=== PATIENT | female | born 1945 | race Caucasian/White ===

== ENCOUNTER → 2021-09-08 09:47 | Outpatient (CLI) | payer MEDICARE, SELFPAY ==
[2021-09-08 10:05] LABS: Basophils # 0.1 K/mm3 (0-0.2); Basophils % 0.4 % (0.1-2.0); Eosinophils # 0.2 K/mm3 (0.0-0.4); Eosinophils % 1.4 % (0.1-12.0); Hematocrit 37.6 % (37.0-47.0); Hemoglobin 12.7 g/dL (12.2-16.2); Lymphocytes # 3.4 K/mm3 (0.7-4.5); Mean Corpuscular HGB Conc 33.9 g/dL (31.8-35.4); Mean Corpuscular Hemoglobin 30.2 pg (27.0-31.2); Mean Corpuscular Volume 89.2 fl (81-99); Mean Platelet Volume 8.7 fl (7.4-10.4); Monocytes # 0.5 K/mm3 (0.1-1.0); Monocytes % 4.6 % (1.7-9.3); Neutrophils # 7.3 K/mm3 (1.8-7.8); Neutrophils % 63.6 % (37.0-80.0); Platelet Count 286 K/mm3 (142-424); Red Blood Count 4.21 M/mm3 (4.20-5.40); Red Cell Distribution Width 13.4 % (11.5-17.5); White Blood Count 11.5 K/mm3 (4.8-10.8)
[2021-09-08 10:18] LABS: Chloride 97 mmol/L (98-107); Sodium 137 mmol/L (136-145)
[2021-09-08 10:19] LABS: Potassium 4.7 mmoL/L (3.5-5.1)
[2021-09-08 10:21] LABS: Alanine Aminotransferase 8 U/L (12-78); Albumin Level 4.6 g/dl (3.5-5.0); Albumin/Globulin Ratio 1.4 (1.1-1.8); Alkaline Phosphatase 60 U/L (38-126); Anion Gap 14.7 mEq/L (5-15); Aspartate Amino Transferase 23 U/L (14-36); Bilirubin,Total 0.3 mg/dl (0.2-1.3); Blood Urea Nitrogen 31 mg/dl (7-17); Calcium 11.3 mg/dl (8.4-10.2); Carbon Dioxide 30 mmol/L (22.0-30.0); Estimated Glomerular Filt Rate 44 ml/min (>60); GFR (African American) 53 ML/MIN (>60); Globulin 3.2 g/dL (1.3-3.2); Glucose 142 mg/dl (74-100); Total Protein,Serum 7.8 g/dl (6.3-8.2)
--- NOTE | 2021-09-08 10:30 | MR_ITS ---
PROCEDURE: MR HEAD/BRAIN WO/W CON CLINICAL INDICATION: BREAST CANCER Intermittent left-sided headache COMPARISON: No exams were available for comparison TECHNIQUE: Routine multiplanar multi echo sequences are performed without gadolinium enhancement. FINDINGS: No midline shift, mass effect, intracranial hemorrhage, or hydrocephalus is evident. The cerebellopontine angles cerebellum, brainstem and mid brain have an unremarkable appearance. There is generalized atrophy. Nonspecific scattered T2 white matter hyperintensities are noted. No enhancing lesions are apparent. There is partial empty sella. The optic chiasm, corpus callosum, and craniocervical junction have an unremarkable appearance. No pituitary mass apparent. No mastoid effusion or sinus air-fluid level. IMPRESSION: No acute intracranial findings. No evidence of metastatic disease. Dictated by: Kenrick Wang MD 09/09/2021 07:59 Kenrick Wang MD in [facility] 09/09/2021 07:59
== END ==
PROVIDERS: PCP Family Medicine; Visit Provider Internal Medicine Medical Oncology
DX: C50.912 Malignant neoplasm of unspecified site of left female breast (principal)
CPT/HCPCS: 36415; 70553; 80053; 85025; A9576

== ENCOUNTER → 2021-09-10 08:39 | Outpatient (CLI) | payer MEDICARE, SELFPAY ==
--- NOTE | 2021-09-10 08:45 | CT_ITS ---
PROCEDURE: CT CHEST W CON CLINCAL INDICATION: BREAST CANCER COMPARISON: No exams were available for comparison TECHNIQUE: IV Contrast: 75ml Isovue 370 Axial images obtained with sagittal and coronal reformats. All CT scans at the facility use one or more dose reduction, viz: automated exposure control, ma/kV adjustment per patient size (including targeted exams where dose is matched to indication, i.e. head), or iterative reconstruction technique. FINDINGS: HEART AND MEDIASTINAL STRUCTURES: No mediastinal or hilar mass or adenopathy. Mild cardiomegaly. Coronary artery calcifications. There is a right IJ MediPort catheter present. The tip is in the region the azygos vein. There is mild dilatation of the ascending aorta at 4 cm. There is mild prominence of the right and left main pulmonary artery right more so than left. No obvious pulmonary embolus. LUNGS AND PLEURAL SPACES: 4 mm noncalcified nodule right upper lobe laterally. 6 mm noncalcified nodule right upper lobe inferiorly and laterally. 4 mm subpleural nodule right upper lobe anterior laterally. Fissural nodule in the right minor fissure flat like in nature at 7 mm. Calcified granuloma right lower lobe inferiorly and medially. 5 mm noncalcified nodule right lower lobe posteriorly and medially 5 mm nodule superior segment left lower lobe. Atelectatic changes versus scarring in the lung bases. BONY STRUCTURES: There are degenerative changes in the thoracic spine UPPER ABDOMEN: Please see abdomen report performed on the same day. ADDITIONAL FINDINGS: 5 cm mass within the inferior aspect of the left breast posteriorly. Central metallic density noted within the mass consistent with a biopsy clip. Edematous changes are present in the left breast with skin thickening. Multiple enlarged left axillary lymph nodes with nodes measuring up to 4 x 2 cm IMPRESSION: 1. Left breast mass with axillary adenopathy consistent with breast cancer with involvement of the axillary nodes. 2. There are multiple noncalcified small pulmonary nodules. At least 1 calcified nodule is also noted. The noncalcified nodules could be metastatic in nature or secondary to inflammatory/infectious process. Follow-up suggested. If old studies are available at another institution, suggest correlation. No old exams are available at this institution. 3. The tip of the right IJ MediPort catheter resides in the region of the azygos vein just distal to the azygos arch 4. Mild fusiform dilatation of the ascending aorta at 4 cm with mild prominence also of the main pulmonary arteries the Dictated by: Kenrick Wang MD 09/11/2021 07:43 Kenrick Wang MD in [facility] 09/11/2021 07:43
--- NOTE | 2021-09-10 08:45 | CT_ITS ---
PROCEDURE: CT ABDOMEN PELVIS W CON CLINICAL INDICATION: BREAST CANCER COMPARISON: No exams were available for comparison TECHNIQUE: IV Contrast: 75ML Isovue 370 Oral Contrast 450ml Redicat Axial images obtained with sagittal and coronal reformats. All CT scans at the facility use one or more dose reduction, viz: automated exposure control, ma/kV adjustment per patient size (including targeted exams where dose is matched to indication, i.e. head), or iterative reconstruction technique. FINDINGS: No focal liver lesion apparent. There has been a prior cholecystectomy. There is mild intra and extrahepatic biliary ductal dilatation. Common bile duct measures 8 mm. Mildly prominent cystic duct remnant noted. Multiple calcified granulomas in the spleen. Unremarkable adrenal glands. No pancreatic mass or peripancreatic fluid collection. The right kidney has an unremarkable appearance. There is an exophytic fatty mass extending off of the superior aspect of the left kidney measuring 5 by 5 cm consistent with an angio myelolipoma. No perinephric hemorrhage. No hydronephrosis. No renal or ureteral calculi. Small hiatal hernia. Unremarkable appendix. No intestinal obstruction or free air. Prior hysterectomy. No pelvic mass or abnormal fluid collection. Small umbilical hernia containing fat. Degenerative changes of the lumbar spine. There is a small sclerotic focus involving the L4 vertebral body on the left at 8 mm. A 3 mm sclerotic focus is present in the right aspect of the L4 vertebral body. There nonspecific areas of decreased attenuation in the intramedullary region of both femoral necks. This is of questionable clinical significance possibly related to osteoporosis. Suggest whole body bone scan for further evaluation. Hypertrophic changes are present at the symphysis pubis. IMPRESSION: 1. No evidence of intra-abdominal or pelvic metastasis. 2. 5 cm left renal angio myelolipoma 3. Scattered small sclerotic foci and questionable lytic lesions of the femoral necks versus osteoporotic changes. The sclerotic foci could be due to bone islands. Metastatic disease is not excluded. Whole body bone scan suggested for further evaluation. 4. Prior cholecystectomy with biliary ectasia and prominent cystic duct remnant. Dictated by: Kenrick Wang MD 09/11/2021 07:56 Kenrick Wang MD in [facility] 09/11/2021 07:56
--- NOTE | 2021-09-10 09:44 | CA_ITS ---
APPROVED REPORT EXAM: Comprehensive 2D, Doppler, and color-flow Echocardiogram Farm Manager: Sara Diego CRT Ht: 5 ft 4 in Wt: 189lbs BSA: 1.91 BP: 155/56 mmHg Indications: recent Breast CA dx, pre chemo 2D Dimensions LVOT 1.91 cm (M/F) 1.5-2.5 LA Volume 30.50 mL LA Volume Index 15.494243 mL/m2 (M/F) 16-34 M-Mode Dimensions RVDd 3.15 cm (0.9-2.6) LA Diam 3.53 cm (1.9-4.0) LVDd 4.64 cm (3.5-5.7) Ao Diam 3.58 cm (2.0-3.7) LVDs 2.82 cm (3.5-5.7) IVSd 1.33 cm (0.6-1.1) PWd 0.53 cm (0.6-1.1) EF (Teich) 75.30% FS 44.40% EDV (Teich) 122.10 mL TAPSE 1.76 (<1.7) ESV (Teich) 30.10 mL LV Diastology E Decel Time 277.00 (160-240 msec) E/A Ratio 0.70 MED E' 5.00 (< 7 cm/sec) MED A' 8.10 cm/s E'/MED E' Ratio 13.08 (>14) LAT E' 6.50 (<10 cm/sec) LAT A' 9.40 cm/s E/LAT E' Ratio 10.06 (>14) Aortic Valve AI PHT 380.00 ms AO Peak GR. 4.70 mmHg Mitral Valve MV A Velocity 94.00 (40-130 cm/s) E/A Ratio 0.70 MV Decel. Time 277.00 (160-240 ms) Pulmonary Valve PV Peak Velocity 82.00 (50-150 cm/s) Tricuspid Valve TR P. Velocity 170.00 cm/s RAP Estimate 10.00 mmHg RVSP 21.50 mmHg Left Ventricle Left atrium is mildly enlarged, left ventricle is normal size, mild concentric left ventricular hypertrophy, visually estimated ejection fraction 55% with no regional wall motion abnormality, grade 1 diastolic dysfunction seen without tissue Doppler evidence of raise left atrial pressure. Right Ventricle Right atrium and right ventricle mildly enlarged with normal contractility. Aortic Valve Aortic valve is minimally thickened and calcified without aortic stenosis, there is trace aortic insufficiency. Mitral Valve Mitral valve is grossly normal, there is no mitral stenosis, there is mild mitral regurgitation. Tricuspid Valve Tricuspid valve grossly normal, there is trace tricuspid regurgitation, tricuspid regurgitation jet velocity is inadequate for calculation of the right ventricular systolic pressure. Pulmonic Valve Pulmonic valve is poorly visualized. Great Vessels Aortic root is mildly enlarged. Measuring 3.8 cm Inferior vena cava is mildly dilated with normal inspiratory collapse. Pericardium No significant pericardial effusion noted. Conclusion 1. Mild biatrial enlargement, normal left ventricular size, mild concentric left ventricular hypertrophy, visually estimated ejection fraction 55% with no regional wall motion abnormality, grade 1 diastolic dysfunction seen without tissue Doppler evidence of raise left atrial pressure. 2. Mildly enlarged right ventricle with normal contractility. 3. Thickened and calcified aortic valve without aortic stenosis, there is mild aortic insufficiency, aortic root is mildly enlarged measuring 3.8 cm. 4. Mild mitral and tricuspid regurgitation. 5. No significant pericardial effusion noted. 6. Inferior vena cava is mildly dilated with normal inspiratory collapse. Electronically signed by : Adonay Donovan MD 09/11/2021 16:38:02
== END ==
PROVIDERS: PCP Family Medicine; Visit Provider Internal Medicine Medical Oncology
DX: C50.912 Malignant neoplasm of unspecified site of left female breast (principal); Z03.89 Encounter for observation for other suspected diseases and conditions ruled out; Z51.81 Encounter for therapeutic drug level monitoring; R06.09 Other forms of dyspnea
CPT/HCPCS: 71260; 74177; 93306; Q9967

== ENCOUNTER → 2021-09-11 09:00 | Outpatient (CLI) | payer MEDICARE, SELFPAY ==
--- NOTE | 2021-09-11 08:58 | XR_ITS ---
PROCEDURE: XR KUB CLINICAL INDICATION: RECENT CT SCAN, BREAST CANCER, CLEARANCE FOR BONE SCAN COMPARISON: No exams were available for comparison FINDINGS: There is residual contrast within the large bowel which overlies the right ilium and the L4 region in the lower ribs on the left as well as the lower pelvic area. This may impede adequate evaluation the bone scan that the patient is scheduled for. Therefore, would recommend reschedule in the bone scan in 2-3 days. There are degenerative changes of the lumbar spine and hips. Nonspecific bowel gas pattern. IMPRESSION: Residual contrast in the colon as described above. Dictated by: Kenrick Wang MD 09/11/2021 09:11 Kenrick Wang MD in [facility] 09/11/2021 09:11
== END ==
PROVIDERS: PCP Family Medicine; Visit Provider Internal Medicine Medical Oncology
DX: C50.912 Malignant neoplasm of unspecified site of left female breast (principal)
CPT/HCPCS: 74018

== ENCOUNTER → 2021-09-15 08:39 | Outpatient (CLI) | payer MEDICARE, SELFPAY ==
--- NOTE | 2021-09-15 08:43 | NM_ITS ---
PROCEDURE: NM BONE SCAN WHOLE BODY CLINICAL INDICATION: BREAST CA COMPARISON: CT CT CHEST W CON from 09/10/[address] ABDOMEN PELVIS W CON from 09/10/2021 FINDINGS: Dose: 25.9 mCi technetium MDP IV There are scattered small foci of increased activity within the thoracic spine on the left at the T4 level bilaterally at T5, on the right at T11, and on the left at L3. These may be due to degenerative changes. There is slight increased activity at the L4 superior endplate which may also be due to degenerative changes. No abnormal long bone activity apparent. IMPRESSION: Indeterminate findings with a few scattered foci of increased activity within the thoracic and lumbar spine. These could be degenerative in nature. Cannot exclude the possibility of metastatic disease. Please correlate with clinical parameters. Dictated by: Kenrick Wang MD 09/19/2021 11:23 Kenrick Wang MD in [facility] 09/19/2021 11:23
--- NOTE | 2021-09-15 08:56 | XR_ITS ---
PROCEDURE: XR KUB CLINICAL INDICATION: CHECKING FOR CONTRAST FROM CT COMPARISON: CT CT ABDOMEN PELVIS W CON from 09/10/2021 CR XR KUB from 09/11/2021 FINDINGS: Patient scheduled for a nuclear medicine exam. This exam is performed to exclude residual oral contrast within the colon. No residual oral contrast apparent. There are mild degenerative changes of the hips and lumbar spine. IMPRESSION: Negative KUB. No residual contrast apparent Dictated by: Kenrick Wang MD 09/15/2021 14:14 Kenrick Wang MD in [facility] 09/15/2021 14:14
--- NOTE | 2021-09-15 09:26 | HMH.ITSHM ---
Current Home Medications as stated by this patient Mabel Bethea or agricultural sales representative. []ROSUVASTATIN METOPROLOL METFORMIN LISINOPRIL HCTZ AMLODIPINE
== END ==
PROVIDERS: PCP Family Medicine; Visit Provider Internal Medicine Medical Oncology
DX: C50.912 Malignant neoplasm of unspecified site of left female breast (principal); Z03.89 Encounter for observation for other suspected diseases and conditions ruled out
CPT/HCPCS: 74018; 78306; A9503

== ENCOUNTER 2021-09-24 08:36 | Outpatient (CLI) | payer MEDICARE, SELFPAY ==
[2021-09-24] VITALS (26 sets, daily range): BP systolic 117–148; BP diastolic 50–67; PULSE 55–68; RESP 16–18; TEMP 36.6; O2SAT 98–100; BMI 32.3
[2021-09-24 09:11] LABS: Basophils # 0.1 K/mm3 (0-0.2); Basophils % 0.9 % (0.1-2.0); Eosinophils # 0.2 K/mm3 (0.0-0.4); Eosinophils % 2.4 % (0.1-12.0); Hematocrit 35.9 % (37.0-47.0); Hemoglobin 12.3 g/dL (12.2-16.2); Lymphocytes # 1.7 K/mm3 (0.7-4.5); Lymphocytes % 26.9 % (10-50); Mean Corpuscular HGB Conc 34.3 g/dL (31.8-35.4); Mean Corpuscular Volume 87.6 fl (81-99); Mean Platelet Volume 8.5 fl (7.4-10.4); Monocytes # 0.3 K/mm3 (0.1-1.0); Monocytes % 5.2 % (1.7-9.3); Neutrophils # 4.2 K/mm3 (1.8-7.8); Neutrophils % 64.6 % (37.0-80.0); Platelet Count 256 K/mm3 (142-424); Red Blood Count 4.09 M/mm3 (4.20-5.40); Red Cell Distribution Width 13.5 % (11.5-17.5); White Blood Count 6.5 K/mm3 (4.8-10.8)
[2021-09-24 09:14] LABS: Chloride 102 mmol/L (98-107)
[2021-09-24 09:15] LABS: Sodium 137 mmol/L (136-145)
[2021-09-24 09:17] LABS: Alanine Aminotransferase 15 U/L (12-78); Alkaline Phosphatase 54 U/L (38-126); Aspartate Amino Transferase 21 U/L (14-36); Bilirubin,Total 0.4 mg/dl (0.2-1.3); Blood Urea Nitrogen 30 mg/dl (7-17); Carbon Dioxide 26 mmol/L (22.0-30.0); Creatinine Clearance Estimated 54 mL/min (50-200); Estimated Glomerular Filt Rate 44 ml/min (>60); GFR (African American) 53 ML/MIN (>60)
[2021-09-24 09:18] LABS: Albumin Level 4.3 g/dl (3.5-5.0); Albumin/Globulin Ratio 1.4 (1.1-1.8); Calcium 9.9 mg/dl (8.4-10.2); Glucose 177 mg/dl (74-100); Total Protein,Serum 7.3 g/dl (6.3-8.2)
== END 2021-09-24 17:00 | disposition home or self-care (01) ==
LOC: INF 08:39
PROVIDERS: PCP Family Medicine; Visit Provider Internal Medicine Medical Oncology
DX: Z51.11 Encounter for antineoplastic chemotherapy (principal); C50.912 Malignant neoplasm of unspecified site of left female breast
CPT/HCPCS: 80053; 85025; 96365; 96366; 96367; J1642; J7060; J9267; J9306; J9355; Q0166

== ENCOUNTER 2021-10-01 08:29 | Outpatient (CLI) | payer MEDICARE, SELFPAY ==
[2021-10-01] VITALS (9 sets, daily range): BP systolic 137–151; BP diastolic 50–77; PULSE 55–69; RESP 18; TEMP 36.2; O2SAT 98–99; BMI 32.2
[2021-10-01 09:11] LABS: Basophils # 0.1 K/mm3 (0-0.2); Basophils % 1.2 % (0.1-2.0); Eosinophils # 0.1 K/mm3 (0.0-0.4); Eosinophils % 1.6 % (0.1-12.0); Hematocrit 37.1 % (37.0-47.0); Hemoglobin 12.7 g/dL (12.2-16.2); Lymphocytes # 2.1 K/mm3 (0.7-4.5); Mean Corpuscular HGB Conc 34.4 g/dL (31.8-35.4); Mean Corpuscular Hemoglobin 30.3 pg (27.0-31.2); Mean Corpuscular Volume 88.3 fl (81-99); Mean Platelet Volume 8.3 fl (7.4-10.4); Monocytes # 0.3 K/mm3 (0.1-1.0); Monocytes % 4.6 % (1.7-9.3); Neutrophils # 4.1 K/mm3 (1.8-7.8); Neutrophils % 61.6 % (37.0-80.0); Platelet Count 225 K/mm3 (142-424); Red Cell Distribution Width 13.5 % (11.5-17.5); White Blood Count 6.7 K/mm3 (4.8-10.8)
[2021-10-01 09:23] LABS: Chloride 94 mmol/L (98-107); Sodium 127 mmol/L (136-145)
[2021-10-01 09:24] LABS: Potassium 4.3 mmoL/L (3.5-5.1)
[2021-10-01 09:26] LABS: Alanine Aminotransferase 18 U/L (12-78); Alkaline Phosphatase 52 U/L (38-126); Anion Gap 14.3 mEq/L (5-15); Aspartate Amino Transferase 25 U/L (14-36); Bilirubin,Total 0.5 mg/dl (0.2-1.3); Blood Urea Nitrogen 29 mg/dl (7-17); Carbon Dioxide 23 mmol/L (22.0-30.0); Creatinine Clearance Estimated 59 mL/min (50-200); Estimated Glomerular Filt Rate 48 ml/min (>60); GFR (African American) 58 ML/MIN (>60)
[2021-10-01 09:27] LABS: Albumin Level 4.4 g/dl (3.5-5.0); Albumin/Globulin Ratio 1.4 (1.1-1.8); Calcium 9.8 mg/dl (8.4-10.2); Globulin 3.2 g/dL (1.3-3.2); Glucose 178 mg/dl (74-100); Total Protein,Serum 7.6 g/dl (6.3-8.2)
== END 2021-10-01 14:20 | disposition home or self-care (01) ==
LOC: INF 08:30
PROVIDERS: PCP Family Medicine; Visit Provider Internal Medicine Medical Oncology
DX: Z51.11 Encounter for antineoplastic chemotherapy (principal); C50.912 Malignant neoplasm of unspecified site of left female breast
CPT/HCPCS: 80053; 85025; 96413; 96415; 96417; J7060; J9267; J9355; Q0166

== ENCOUNTER 2021-10-08 08:28 | Outpatient (CLI) | payer MEDICARE, SELFPAY ==
[2021-10-08] VITALS (17 sets, daily range): BP systolic 109–134; BP diastolic 42–80; PULSE 52–67; RESP 16–18; TEMP 36.2; O2SAT 100; BMI 32.1
[2021-10-08 09:11] LABS: Basophils # 0.1 K/mm3 (0-0.2); Basophils % 1.1 % (0.1-2.0); Hematocrit 33.7 % (37.0-47.0); Hemoglobin 11.5 g/dL (12.2-16.2); Lymphocytes # 1.8 K/mm3 (0.7-4.5); Lymphocytes % 41.3 % (10-50); Mean Corpuscular HGB Conc 34.2 g/dL (31.8-35.4); Mean Corpuscular Hemoglobin 30.1 pg (27.0-31.2); Mean Corpuscular Volume 87.9 fl (81-99); Mean Platelet Volume 8.6 fl (7.4-10.4); Monocytes # 0.2 K/mm3 (0.1-1.0); Monocytes % 4.4 % (1.7-9.3); Neutrophils # 2.3 K/mm3 (1.8-7.8); Neutrophils % 52.2 % (37.0-80.0); Platelet Count 200 K/mm3 (142-424); Red Blood Count 3.83 M/mm3 (4.20-5.40); Red Cell Distribution Width 13.1 % (11.5-17.5); White Blood Count 4.3 K/mm3 (4.8-10.8)
[2021-10-08 09:13] LABS: Chloride 90 mmol/L (98-107); Sodium 123 mmol/L (136-145)
[2021-10-08 09:14] LABS: Potassium 5.2 mmoL/L (3.5-5.1)
[2021-10-08 09:16] LABS: Alanine Aminotransferase 97 U/L (12-78); Albumin Level 4.2 g/dl (3.5-5.0); Albumin/Globulin Ratio 1.6 (1.1-1.8); Alkaline Phosphatase 100 U/L (38-126); Anion Gap 15.2 mEq/L (5-15); Aspartate Amino Transferase 65 U/L (14-36); Bilirubin,Total 0.5 mg/dl (0.2-1.3); Blood Urea Nitrogen 25 mg/dl (7-17); Carbon Dioxide 23 mmol/L (22.0-30.0); Creatinine Clearance Estimated 58 mL/min (50-200); Estimated Glomerular Filt Rate 48 ml/min (>60); GFR (African American) 58 ML/MIN (>60); Globulin 2.7 g/dL (1.3-3.2); Total Protein,Serum 6.9 g/dl (6.3-8.2)
[2021-10-08 09:17] LABS: Calcium 9.9 mg/dl (8.4-10.2); Glucose 165 mg/dl (74-100)
== END 2021-10-08 14:45 | disposition home or self-care (01) ==
LOC: INF 08:29
PROVIDERS: PCP Family Medicine; Visit Provider Internal Medicine Medical Oncology
DX: Z51.11 Encounter for antineoplastic chemotherapy (principal); C50.912 Malignant neoplasm of unspecified site of left female breast
CPT/HCPCS: 80053; 85025; 96413; 96415; 96417; J1642; J7060; J9267; J9355; Q0166

== ENCOUNTER 2021-10-15 08:40 | Outpatient (CLI) | payer MEDICARE, SELFPAY ==
[2021-10-15] VITALS (11 sets, daily range): BP systolic 93–134; BP diastolic 45–58; PULSE 55–61; RESP 18; TEMP 36.5; O2SAT 100; BMI 32.1
[2021-10-15 09:02] LABS: Basophils # 0.1 K/mm3 (0-0.2); Basophils % 1.7 % (0.1-2.0); Eosinophils # 0.1 K/mm3 (0.0-0.4); Eosinophils % 0.9 % (0.1-12.0); Hematocrit 34.2 % (37.0-47.0); Hemoglobin 11.3 g/dL (12.2-16.2); Lymphocytes # 1.9 K/mm3 (0.7-4.5); Lymphocytes % 38.1 % (10-50); Mean Corpuscular HGB Conc 33.1 g/dL (31.8-35.4); Mean Corpuscular Hemoglobin 30.2 pg (27.0-31.2); Mean Corpuscular Volume 91.2 fl (81-99); Monocytes # 0.2 K/mm3 (0.1-1.0); Monocytes % 3.6 % (1.7-9.3); Neutrophils # 2.8 K/mm3 (1.8-7.8); Neutrophils % 55.7 % (37.0-80.0); Platelet Count 265 K/mm3 (142-424); Red Blood Count 3.75 M/mm3 (4.20-5.40); Red Cell Distribution Width 13.4 % (11.5-17.5); White Blood Count 5.1 K/mm3 (4.8-10.8)
[2021-10-15 09:18] LABS: Alanine Aminotransferase 27 U/L (12-78); Albumin Level 4.2 g/dl (3.5-5.0); Albumin/Globulin Ratio 1.5 (1.1-1.8); Alkaline Phosphatase 68 U/L (38-126); Anion Gap 12.5 mEq/L (5-15); Aspartate Amino Transferase 21 U/L (14-36); Bilirubin,Total 0.4 mg/dl (0.2-1.3); Blood Urea Nitrogen 26 mg/dl (7-17); Calcium 9.8 mg/dl (8.4-10.2); Carbon Dioxide 25 mmol/L (22.0-30.0); Chloride 91 mmol/L (98-107); Creatinine Clearance Estimated 53 mL/min (50-200); Estimated Glomerular Filt Rate 44 ml/min (>60); GFR (African American) 53 ML/MIN (>60); Globulin 2.8 g/dL (1.3-3.2); Glucose 158 mg/dl (74-100); Potassium 4.5 mmoL/L (3.5-5.1); Sodium 124 mmol/L (136-145)
== END 2021-10-15 14:55 | disposition home or self-care (01) ==
LOC: INF 08:41
PROVIDERS: PCP Family Medicine; Visit Provider Internal Medicine Medical Oncology
DX: Z51.11 Encounter for antineoplastic chemotherapy (principal); C50.912 Malignant neoplasm of unspecified site of left female breast
CPT/HCPCS: 80053; 85025; 96413; 96415; 96417; J1642; J7060; J9267; J9306; J9355; Q0166

== ENCOUNTER 2021-10-22 08:23 | Outpatient (CLI) | payer MEDICARE, SELFPAY ==
[2021-10-22] VITALS (8 sets, daily range): BP systolic 124–154; BP diastolic 48–62; PULSE 54–64; RESP 18; TEMP 36.4; O2SAT 99; BMI 32.2
[2021-10-22 09:05] LABS: Basophils % 0.9 % (0.1-2.0); Eosinophils % 0.6 % (0.1-12.0); Hematocrit 31.6 % (37.0-47.0); Lymphocytes # 1.3 K/mm3 (0.7-4.5); Lymphocytes % 30.7 % (10-50); Mean Corpuscular HGB Conc 34.7 g/dL (31.8-35.4); Mean Corpuscular Hemoglobin 30.9 pg (27.0-31.2); Mean Platelet Volume 8.4 fl (7.4-10.4); Monocytes # 0.2 K/mm3 (0.1-1.0); Monocytes % 5.2 % (1.7-9.3); Neutrophils # 2.7 K/mm3 (1.8-7.8); Neutrophils % 62.6 % (37.0-80.0); Platelet Count 248 K/mm3 (142-424); Red Blood Count 3.55 M/mm3 (4.20-5.40); White Blood Count 4.4 K/mm3 (4.8-10.8)
[2021-10-22 09:14] LABS: Chloride 97 mmol/L (98-107); Potassium 4.5 mmoL/L (3.5-5.1); Sodium 130 mmol/L (136-145)
[2021-10-22 09:16] LABS: Alanine Aminotransferase 15 U/L (12-78); Alkaline Phosphatase 53 U/L (38-126); Aspartate Amino Transferase 21 U/L (14-36); Bilirubin,Total 0.5 mg/dl (0.2-1.3); Blood Urea Nitrogen 28 mg/dl (7-17); Creatinine Clearance Estimated 54 mL/min (50-200); Estimated Glomerular Filt Rate 44 ml/min (>60); GFR (African American) 53 ML/MIN (>60)
[2021-10-22 09:17] LABS: Albumin/Globulin Ratio 1.4 (1.1-1.8); Anion Gap 12.5 mEq/L (5-15); Calcium 9.5 mg/dl (8.4-10.2); Carbon Dioxide 25 mmol/L (22.0-30.0); Globulin 2.8 g/dL (1.3-3.2); Glucose 153 mg/dl (74-100); Total Protein,Serum 6.8 g/dl (6.3-8.2)
== END 2021-10-22 14:05 | disposition home or self-care (01) ==
LOC: INF 08:25
PROVIDERS: PCP Family Medicine; Visit Provider Internal Medicine Medical Oncology
DX: Z51.11 Encounter for antineoplastic chemotherapy (principal); C50.912 Malignant neoplasm of unspecified site of left female breast
CPT/HCPCS: 80053; 85025; 96413; 96415; 96417; J1642; J7060; J9267; J9355; Q0166

== ENCOUNTER 2021-11-05 07:52 | Outpatient (CLI) | payer MEDICARE, SELFPAY ==
[2021-11-05] VITALS (10 sets, daily range): BP systolic 129–152; BP diastolic 54–79; PULSE 59–79; RESP 18; TEMP 36.3; O2SAT 97–99; BMI 32.1
[2021-11-05 08:33] LABS: Basophils # 0.1 K/mm3 (0-0.2); Basophils % 0.8 % (0.1-2.0); Eosinophils % 0.6 % (0.1-12.0); Hematocrit 32.7 % (37.0-47.0); Lymphocytes # 2.2 K/mm3 (0.7-4.5); Mean Corpuscular HGB Conc 33.5 g/dL (31.8-35.4); Mean Corpuscular Hemoglobin 30.2 pg (27.0-31.2); Mean Platelet Volume 8.2 fl (7.4-10.4); Monocytes # 0.5 K/mm3 (0.1-1.0); Monocytes % 6.3 % (1.7-9.3); Neutrophils # 4.7 K/mm3 (1.8-7.8); Neutrophils % 63.2 % (37.0-80.0); Platelet Count 308 K/mm3 (142-424); Red Blood Count 3.63 M/mm3 (4.20-5.40); Red Cell Distribution Width 14.3 % (11.5-17.5); White Blood Count 7.4 K/mm3 (4.8-10.8)
[2021-11-05 08:43] LABS: Alanine Aminotransferase 11 U/L (12-78); Albumin Level 4.1 g/dl (3.5-5.0); Albumin/Globulin Ratio 1.4 (1.1-1.8); Alkaline Phosphatase 63 U/L (38-126); Anion Gap 11.4 mEq/L (5-15); Aspartate Amino Transferase 21 U/L (14-36); Bilirubin,Total 0.3 mg/dl (0.2-1.3); Blood Urea Nitrogen 18 mg/dl (7-17); Calcium 9.7 mg/dl (8.4-10.2); Carbon Dioxide 25 mmol/L (22.0-30.0); Chloride 100 mmol/L (98-107); Creatinine Clearance Estimated 58 mL/min (50-200); Estimated Glomerular Filt Rate 48 ml/min (>60); GFR (African American) 58 ML/MIN (>60); Globulin 2.9 g/dL (1.3-3.2); Glucose 157 mg/dl (74-100); Potassium 4.4 mmoL/L (3.5-5.1); Sodium 132 mmol/L (136-145)
[2021-11-05 09:56] LABS: Thyroid Stimulating Hormone 2.12 uIU/mL (0.465-4.68)
== END 2021-11-05 14:10 | disposition home or self-care (01) ==
LOC: INF 07:54
PROVIDERS: PCP Family Medicine; Visit Provider Internal Medicine Medical Oncology
DX: Z51.11 Encounter for antineoplastic chemotherapy (principal); C50.912 Malignant neoplasm of unspecified site of left female breast; Z79.899 Other long term (current) drug therapy
CPT/HCPCS: 80053; 82024; 82533; 84443; 85025; 96413; 96415; 96417; J1642; J7060; J9267; J9355; Q0166

== ENCOUNTER 2021-11-19 08:35 | Outpatient (CLI) | payer MEDICARE, SELFPAY ==
[2021-11-19] VITALS (11 sets, daily range): BP systolic 117–141; BP diastolic 48–66; PULSE 58–81; RESP 18; TEMP 36.2; O2SAT 99–100; BMI 31.9
[2021-11-19 09:10] LABS: Basophils % 0.6 % (0.1-2.0); Eosinophils # 0.1 K/mm3 (0.0-0.4); Eosinophils % 1.5 % (0.1-12.0); Lymphocytes # 2.1 K/mm3 (0.7-4.5); Lymphocytes % 31.3 % (10-50); Mean Corpuscular HGB Conc 33.4 g/dL (31.8-35.4); Mean Corpuscular Hemoglobin 30.5 pg (27.0-31.2); Mean Corpuscular Volume 91.3 fl (81-99); Mean Platelet Volume 8.3 fl (7.4-10.4); Monocytes # 0.5 K/mm3 (0.1-1.0); Monocytes % 7.3 % (1.7-9.3); Neutrophils % 59.2 % (37.0-80.0); Platelet Count 238 K/mm3 (142-424); Red Blood Count 3.61 M/mm3 (4.20-5.40); Red Cell Distribution Width 15.1 % (11.5-17.5); White Blood Count 6.7 K/mm3 (4.8-10.8)
[2021-11-19 09:11] LABS: Chloride 103 mmol/L (98-107)
[2021-11-19 09:12] LABS: Potassium 4.5 mmoL/L (3.5-5.1); Sodium 133 mmol/L (136-145)
[2021-11-19 09:14] LABS: Alanine Aminotransferase 13 U/L (12-78); Aspartate Amino Transferase 19 U/L (14-36); Blood Urea Nitrogen 22 mg/dl (7-17); Creatinine Clearance Estimated 49 mL/min (50-200); Estimated Glomerular Filt Rate 40 ml/min (>60); GFR (African American) 48 ML/MIN (>60)
[2021-11-19 09:15] LABS: Albumin Level 4.1 g/dl (3.5-5.0); Albumin/Globulin Ratio 1.4 (1.1-1.8); Alkaline Phosphatase 56 U/L (38-126); Anion Gap 10.5 mEq/L (5-15); Bilirubin,Total 0.5 mg/dl (0.2-1.3); Calcium 9.1 mg/dl (8.4-10.2); Carbon Dioxide 24 mmol/L (22.0-30.0); Globulin 2.9 g/dL (1.3-3.2); Glucose 138 mg/dl (74-100)
[2021-11-19 09:53] LABS: Thyroid Stimulating Hormone 2.52 uIU/mL (0.465-4.68)
[2021-11-20 13:17] LABS: Adrenocorticotropic Hormone 42.3 pg/mL (7.2-63.3)
== END 2021-11-19 14:30 | disposition home or self-care (01) ==
LOC: INF 08:35
PROVIDERS: PCP Family Medicine; Visit Provider Internal Medicine Medical Oncology
DX: Z51.11 Encounter for antineoplastic chemotherapy (principal); C50.912 Malignant neoplasm of unspecified site of left female breast; Z79.899 Other long term (current) drug therapy
CPT/HCPCS: 80053; 82024; 82533; 84443; 85025; 96413; 96415; 96417; J1642; J7060; J9267; J9306; J9355; Q0166

== ENCOUNTER 2021-11-26 08:13 | Outpatient (CLI) | payer MEDICARE, SELFPAY ==
[2021-11-26] VITALS (9 sets, daily range): BP systolic 107–136; BP diastolic 43–66; PULSE 57–85; RESP 20; TEMP 36.2; O2SAT 98–99; BMI 31.9
[2021-11-26 08:40] LABS: Basophils % 0.6 % (0.1-2.0); Eosinophils # 0.1 K/mm3 (0.0-0.4); Eosinophils % 1.6 % (0.1-12.0); Hematocrit 32.4 % (37.0-47.0); Hemoglobin 10.8 g/dL (12.2-16.2); Lymphocytes % 33.7 % (10-50); Mean Corpuscular HGB Conc 33.3 g/dL (31.8-35.4); Mean Corpuscular Hemoglobin 30.2 pg (27.0-31.2); Mean Corpuscular Volume 90.7 fl (81-99); Mean Platelet Volume 7.9 fl (7.4-10.4); Monocytes # 0.3 K/mm3 (0.1-1.0); Monocytes % 4.4 % (1.7-9.3); Neutrophils # 3.6 K/mm3 (1.8-7.8); Neutrophils % 59.7 % (37.0-80.0); Platelet Count 230 K/mm3 (142-424); Red Blood Count 3.57 M/mm3 (4.20-5.40); Red Cell Distribution Width 14.5 % (11.5-17.5)
[2021-11-26 08:46] LABS: Chloride 102 mmol/L (98-107)
[2021-11-26 08:47] LABS: Potassium 4.5 mmoL/L (3.5-5.1); Sodium 132 mmol/L (136-145)
[2021-11-26 08:49] LABS: Alanine Aminotransferase 14 U/L (12-78); Albumin Level 3.9 g/dl (3.5-5.0); Albumin/Globulin Ratio 1.3 (1.1-1.8); Alkaline Phosphatase 57 U/L (38-126); Anion Gap 10.5 mEq/L (5-15); Aspartate Amino Transferase 23 U/L (14-36); Bilirubin,Total 0.5 mg/dl (0.2-1.3); Blood Urea Nitrogen 29 mg/dl (7-17); Carbon Dioxide 24 mmol/L (22.0-30.0); Creatinine Clearance Estimated 53 mL/min (50-200); Estimated Glomerular Filt Rate 44 ml/min (>60); GFR (African American) 53 ML/MIN (>60); Total Protein,Serum 6.9 g/dl (6.3-8.2)
[2021-11-26 08:50] LABS: Calcium 8.8 mg/dl (8.4-10.2); Glucose 142 mg/dl (74-100)
== END 2021-11-26 14:15 | disposition home or self-care (01) ==
LOC: INF 08:14
PROVIDERS: PCP Family Medicine; Visit Provider Internal Medicine Medical Oncology
DX: Z51.11 Encounter for antineoplastic chemotherapy (principal); C50.912 Malignant neoplasm of unspecified site of left female breast
CPT/HCPCS: 80053; 85025; 96413; 96415; 96417; J1642; J7060; J9267; J9355; Q0166

== ENCOUNTER 2021-12-03 08:23 | Outpatient (CLI) | payer MEDICARE, SELFPAY ==
[2021-12-03] VITALS (17 sets, daily range): BP systolic 111–136; BP diastolic 54–85; PULSE 57–78; RESP 16–18; TEMP 36.1; O2SAT 99; BMI 31.9
[2021-12-03 09:08] LABS: Basophils % 0.4 % (0.1-2.0); Eosinophils # 0.1 K/mm3 (0.0-0.4); Hemoglobin 10.7 g/dL (12.2-16.2); Lymphocytes # 2.2 K/mm3 (0.7-4.5); Lymphocytes % 38.7 % (10-50); Mean Corpuscular HGB Conc 34.5 g/dL (31.8-35.4); Mean Corpuscular Hemoglobin 31.1 pg (27.0-31.2); Mean Corpuscular Volume 90.1 fl (81-99); Mean Platelet Volume 8.1 fl (7.4-10.4); Monocytes # 0.2 K/mm3 (0.1-1.0); Monocytes % 3.3 % (1.7-9.3); Neutrophils # 3.2 K/mm3 (1.8-7.8); Neutrophils % 56.5 % (37.0-80.0); Platelet Count 222 K/mm3 (142-424); Red Blood Count 3.44 M/mm3 (4.20-5.40); Red Cell Distribution Width 14.7 % (11.5-17.5); White Blood Count 5.7 K/mm3 (4.8-10.8)
[2021-12-03 09:13] LABS: Chloride 102 mmol/L (98-107)
[2021-12-03 09:14] LABS: Potassium 4.5 mmoL/L (3.5-5.1); Sodium 132 mmol/L (136-145)
[2021-12-03 09:16] LABS: Blood Urea Nitrogen 25 mg/dl (7-17); Creatinine Clearance Estimated 53 mL/min (50-200); Estimated Glomerular Filt Rate 44 ml/min (>60); GFR (African American) 53 ML/MIN (>60)
[2021-12-03 09:17] LABS: Alanine Aminotransferase 15 U/L (12-78); Albumin/Globulin Ratio 1.5 (1.1-1.8); Alkaline Phosphatase 56 U/L (38-126); Anion Gap 10.5 mEq/L (5-15); Aspartate Amino Transferase 21 U/L (14-36); Bilirubin,Total 0.5 mg/dl (0.2-1.3); Calcium 8.8 mg/dl (8.4-10.2); Carbon Dioxide 24 mmol/L (22.0-30.0); Globulin 2.7 g/dL (1.3-3.2); Glucose 144 mg/dl (74-100); Total Protein,Serum 6.7 g/dl (6.3-8.2)
== END 2021-12-03 14:30 | disposition home or self-care (01) ==
LOC: INF 08:24
PROVIDERS: PCP Family Medicine; Visit Provider Internal Medicine Medical Oncology
DX: Z51.11 Encounter for antineoplastic chemotherapy (principal); C50.912 Malignant neoplasm of unspecified site of left female breast
CPT/HCPCS: 80053; 85025; 96413; 96415; 96417; J1642; J7060; J9267; J9355; Q0166

== ENCOUNTER 2021-12-10 08:34 | Outpatient (CLI) | payer MEDICARE, SELFPAY ==
[2021-12-10] VITALS (11 sets, daily range): BP systolic 110–127; BP diastolic 48–66; PULSE 55–67; RESP 18; TEMP 36.2; O2SAT 98–99; BMI 32.2
[2021-12-10 09:16] LABS: Basophils # 0.1 K/mm3 (0-0.2); Basophils % 1.1 % (0.1-2.0); Eosinophils # 0.1 K/mm3 (0.0-0.4); Eosinophils % 1.1 % (0.1-12.0); Hematocrit 31.5 % (37.0-47.0); Hemoglobin 10.3 g/dL (12.2-16.2); Lymphocytes # 1.6 K/mm3 (0.7-4.5); Lymphocytes % 36.1 % (10-50); Mean Corpuscular HGB Conc 32.8 g/dL (31.8-35.4); Mean Corpuscular Hemoglobin 30.8 pg (27.0-31.2); Mean Corpuscular Volume 94.1 fl (81-99); Mean Platelet Volume 9.2 fl (7.4-10.4); Monocytes # 0.2 K/mm3 (0.1-1.0); Monocytes % 3.8 % (1.7-9.3); Neutrophils # 2.5 K/mm3 (1.8-7.8); Platelet Count 240 K/mm3 (142-424); Red Blood Count 3.35 M/mm3 (4.20-5.40); Red Cell Distribution Width 15.1 % (11.5-17.5); White Blood Count 4.4 K/mm3 (4.8-10.8)
[2021-12-10 09:24] LABS: Alanine Aminotransferase 14 U/L (12-78); Albumin Level 3.9 g/dl (3.5-5.0); Albumin/Globulin Ratio 1.4 (1.1-1.8); Alkaline Phosphatase 53 U/L (38-126); Anion Gap 11.7 mEq/L (5-15); Aspartate Amino Transferase 23 U/L (14-36); Bilirubin,Total 0.5 mg/dl (0.2-1.3); Blood Urea Nitrogen 31 mg/dl (7-17); Calcium 9.2 mg/dl (8.4-10.2); Carbon Dioxide 24 mmol/L (22.0-30.0); Chloride 102 mmol/L (98-107); Creatinine Clearance Estimated 50 mL/min (50-200); Estimated Glomerular Filt Rate 40 ml/min (>60); GFR (African American) 48 ML/MIN (>60); Globulin 2.8 g/dL (1.3-3.2); Glucose 151 mg/dl (74-100); Potassium 4.7 mmoL/L (3.5-5.1); Sodium 133 mmol/L (136-145); Total Protein,Serum 6.7 g/dl (6.3-8.2)
[2021-12-10 09:55] LABS: Thyroid Stimulating Hormone 1.73 uIU/mL (0.465-4.68)
[2021-12-11 13:12] LABS: Adrenocorticotropic Hormone 30.4 pg/mL (7.2-63.3)
== END 2021-12-10 15:30 | disposition home or self-care (01) ==
LOC: INF 08:35
PROVIDERS: PCP Family Medicine; Visit Provider Internal Medicine Medical Oncology
DX: Z51.11 Encounter for antineoplastic chemotherapy (principal); C50.912 Malignant neoplasm of unspecified site of left female breast; Z79.899 Other long term (current) drug therapy
CPT/HCPCS: 80053; 82024; 82533; 84443; 85025; 96413; 96415; 96417; J1642; J7060; J9267; J9306; J9355; Q0166

== ENCOUNTER 2021-12-17 08:18 | Outpatient (CLI) | payer MEDICARE, SELFPAY ==
[2021-12-17] VITALS (10 sets, daily range): BP systolic 121–140; BP diastolic 49–61; PULSE 53–67; RESP 18; TEMP 36.6; O2SAT 98–100; BMI 31.9
[2021-12-17 09:05] LABS: Basophils % 0.6 % (0.1-2.0); Eosinophils % 0.8 % (0.1-12.0); Hematocrit 31.4 % (37.0-47.0); Hemoglobin 10.2 g/dL (12.2-16.2); Lymphocytes # 1.9 K/mm3 (0.7-4.5); Lymphocytes % 46.3 % (10-50); Mean Corpuscular HGB Conc 32.5 g/dL (31.8-35.4); Mean Corpuscular Hemoglobin 30.9 pg (27.0-31.2); Mean Corpuscular Volume 95.2 fl (81-99); Mean Platelet Volume 8.9 fl (7.4-10.4); Monocytes # 0.2 K/mm3 (0.1-1.0); Neutrophils % 47.4 % (37.0-80.0); Platelet Count 233 K/mm3 (142-424); Red Cell Distribution Width 15.3 % (11.5-17.5); White Blood Count 4.2 K/mm3 (4.8-10.8)
[2021-12-17 09:06] LABS: Chloride 101 mmol/L (98-107); Potassium 4.8 mmoL/L (3.5-5.1); Sodium 131 mmol/L (136-145)
[2021-12-17 09:09] LABS: Alanine Aminotransferase 16 U/L (12-78); Albumin Level 3.8 g/dl (3.5-5.0); Albumin/Globulin Ratio 1.4 (1.1-1.8); Alkaline Phosphatase 53 U/L (38-126); Anion Gap 9.8 mEq/L (5-15); Aspartate Amino Transferase 21 U/L (14-36); Bilirubin,Total 0.4 mg/dl (0.2-1.3); Blood Urea Nitrogen 22 mg/dl (7-17); Calcium 8.8 mg/dl (8.4-10.2); Carbon Dioxide 25 mmol/L (22.0-30.0); Creatinine Clearance Estimated 58 mL/min (50-200); Estimated Glomerular Filt Rate 48 ml/min (>60); GFR (African American) 58 ML/MIN (>60); Globulin 2.8 g/dL (1.3-3.2); Glucose 133 mg/dl (74-100); Total Protein,Serum 6.6 g/dl (6.3-8.2)
--- NOTE | 2021-12-17 14:30 | US_ITS ---
PROCEDURE INFORMATION: Exam: US Left Breast, Complete Exam date and time: 12/17/2021 2:30 PM Age: 76 years old Clinical indication: Cancer of the breast; Left; Upper outer quadrant (uoq); PT had bx at another hosp-- PT had CT here that showed mass-- PT is currently doing chemo to shrink tumor before surg TECHNIQUE: Imaging protocol: Complete ultrasound of all four quadrants of the Left breast and the retroareolar regions, including ultrasound of the axilla when performed. COMPARISON: NM BONE SCAN WHOLE BODY 09/15/2021 12:41 PM FINDINGS: Breast: Irregularly marginated hypoechoic mass measuring 4.0 x 1.0 by approximately 3.3 cm in dimension contains a clip from prior biopsy. This appears to most closely correspond to the CT scan report of a 5 cm mass in the inferior left breast. Evaluation of the left axilla demonstrates 2 lymph nodes with abnormally thickened cortices possibly reflecting metastases. Each measure approximately 1.4 cm in dimension IMPRESSION: 1. By report, biopsy-proven carcinoma in the left breast. Correlation with mammography may prove useful. 2. Two abnormal left axillary lymph nodes possibly reflecting metastases. ASSESSMENT: BI-RADS Category 6: Known Biopsy-Proven Malignancy
== END 2021-12-17 14:20 | disposition home or self-care (01) ==
PROVIDERS: Visit Provider Internal Medicine Medical Oncology
DX: Z51.11 Encounter for antineoplastic chemotherapy (principal); C50.912 Malignant neoplasm of unspecified site of left female breast
CPT/HCPCS: 76641; 80053; 85025; 96413; 96415; 96417; J1642; J7060; J9267; J9355; Q0166

== ENCOUNTER 2021-12-25 08:23 | Outpatient (CLI) | payer MEDICARE, SELFPAY ==
[2021-12-25] VITALS (10 sets, daily range): BP systolic 116–133; BP diastolic 45–55; PULSE 56–76; RESP 18; TEMP 36.8; O2SAT 97–98; BMI 31.9
[2021-12-25 08:46] LABS: Basophils % 0.8 % (0.1-2.0); Eosinophils # 0.1 K/mm3 (0.0-0.4); Eosinophils % 0.8 % (0.1-12.0); Hematocrit 30.9 % (37.0-47.0); Hemoglobin 10.2 g/dL (12.2-16.2); Lymphocytes % 34.5 % (10-50); Mean Corpuscular HGB Conc 32.9 g/dL (31.8-35.4); Mean Corpuscular Hemoglobin 31.1 pg (27.0-31.2); Mean Corpuscular Volume 94.5 fl (81-99); Monocytes # 0.3 K/mm3 (0.1-1.0); Monocytes % 5.2 % (1.7-9.3); Neutrophils # 3.4 K/mm3 (1.8-7.8); Neutrophils % 58.7 % (37.0-80.0); Platelet Count 260 K/mm3 (142-424); Red Blood Count 3.28 M/mm3 (4.20-5.40); Red Cell Distribution Width 15.5 % (11.5-17.5); White Blood Count 5.7 K/mm3 (4.8-10.8)
[2021-12-25 09:04] LABS: Alanine Aminotransferase 13 U/L (12-78); Albumin Level 3.8 g/dl (3.5-5.0); Albumin/Globulin Ratio 1.4 (1.1-1.8); Alkaline Phosphatase 54 U/L (38-126); Anion Gap 9.7 mEq/L (5-15); Aspartate Amino Transferase 21 U/L (14-36); Bilirubin,Total 0.5 mg/dl (0.2-1.3); Blood Urea Nitrogen 22 mg/dl (7-17); Calcium 9.2 mg/dl (8.4-10.2); Carbon Dioxide 25 mmol/L (22.0-30.0); Chloride 103 mmol/L (98-107); Creatinine Clearance Estimated 58 mL/min (50-200); Estimated Glomerular Filt Rate 48 ml/min (>60); GFR (African American) 58 ML/MIN (>60); Globulin 2.7 g/dL (1.3-3.2); Glucose 146 mg/dl (74-100); Potassium 4.7 mmoL/L (3.5-5.1); Sodium 133 mmol/L (136-145); Total Protein,Serum 6.5 g/dl (6.3-8.2)
== END 2021-12-25 14:17 | disposition home or self-care (01) ==
LOC: INF 08:24
PROVIDERS: PCP Family Medicine; Visit Provider Internal Medicine Medical Oncology
DX: Z51.11 Encounter for antineoplastic chemotherapy (principal); C50.912 Malignant neoplasm of unspecified site of left female breast
CPT/HCPCS: 80053; 85025; 96413; 96415; 96417; J1642; J7060; J9267; J9355; Q0166

== ENCOUNTER 2021-12-31 08:35 | Outpatient (CLI) | payer MEDICARE, SELFPAY ==
[2021-12-31] VITALS (10 sets, daily range): BP systolic 117–132; BP diastolic 56–70; PULSE 60–68; RESP 18; TEMP 36.4; O2SAT 99–100; BMI 31.9
[2021-12-31 09:01] LABS: Basophils % 0.8 % (0.1-2.0); Eosinophils % 0.5 % (0.1-12.0); Hemoglobin 10.3 g/dL (12.2-16.2); Lymphocytes # 1.7 K/mm3 (0.7-4.5); Lymphocytes % 32.2 % (10-50); Mean Corpuscular HGB Conc 33.3 g/dL (31.8-35.4); Mean Corpuscular Hemoglobin 31.5 pg (27.0-31.2); Mean Corpuscular Volume 94.4 fl (81-99); Mean Platelet Volume 8.9 fl (7.4-10.4); Monocytes # 0.2 K/mm3 (0.1-1.0); Monocytes % 3.8 % (1.7-9.3); Neutrophils # 3.3 K/mm3 (1.8-7.8); Neutrophils % 62.6 % (37.0-80.0); Platelet Count 249 K/mm3 (142-424); Red Blood Count 3.28 M/mm3 (4.20-5.40); Red Cell Distribution Width 15.4 % (11.5-17.5); White Blood Count 5.3 K/mm3 (4.8-10.8)
[2021-12-31 09:06] LABS: Alanine Aminotransferase 14 U/L (12-78); Albumin Level 3.9 g/dl (3.5-5.0); Albumin/Globulin Ratio 1.4 (1.1-1.8); Alkaline Phosphatase 50 U/L (38-126); Anion Gap 8.8 mEq/L (5-15); Aspartate Amino Transferase 18 U/L (14-36); Bilirubin,Total 0.5 mg/dl (0.2-1.3); Blood Urea Nitrogen 22 mg/dl (7-17); Calcium 9.3 mg/dl (8.4-10.2); Carbon Dioxide 27 mmol/L (22.0-30.0); Chloride 102 mmol/L (98-107); Creatinine Clearance Estimated 58 mL/min (50-200); Estimated Glomerular Filt Rate 48 ml/min (>60); GFR (African American) 58 ML/MIN (>60); Globulin 2.7 g/dL (1.3-3.2); Glucose 142 mg/dl (74-100); Potassium 4.8 mmoL/L (3.5-5.1); Sodium 133 mmol/L (136-145); Total Protein,Serum 6.6 g/dl (6.3-8.2)
== END 2021-12-31 14:05 | disposition home or self-care (01) ==
LOC: INF 08:37
PROVIDERS: PCP Family Medicine; Visit Provider Internal Medicine Medical Oncology
DX: Z51.11 Encounter for antineoplastic chemotherapy (principal); C50.912 Malignant neoplasm of unspecified site of left female breast
CPT/HCPCS: 80053; 85025; 96413; 96415; 96417; J1642; J7060; J9267; J9355; Q0166

== ENCOUNTER 2022-01-07 08:30 | Outpatient (CLI) | payer MEDICARE, SELFPAY ==
[2022-01-07] VITALS (9 sets, daily range): BP systolic 103–108; BP diastolic 39–63; PULSE 57–64; RESP 16–18; TEMP 36.6; O2SAT 97–98; BMI 31.9
[2022-01-07 08:56] LABS: Basophils # 0.1 K/mm3 (0-0.2); Basophils % 1.2 % (0.1-2.0); Eosinophils % 0.9 % (0.1-12.0); Hematocrit 29.2 % (37.0-47.0); Hemoglobin 9.8 g/dL (12.2-16.2); Lymphocytes % 40.8 % (10-50); Mean Corpuscular HGB Conc 33.6 g/dL (31.8-35.4); Mean Corpuscular Hemoglobin 31.7 pg (27.0-31.2); Mean Corpuscular Volume 94.2 fl (81-99); Mean Platelet Volume 8.8 fl (7.4-10.4); Monocytes # 0.2 K/mm3 (0.1-1.0); Monocytes % 3.7 % (1.7-9.3); Neutrophils # 2.6 K/mm3 (1.8-7.8); Neutrophils % 53.3 % (37.0-80.0); Platelet Count 248 K/mm3 (142-424); Red Cell Distribution Width 15.4 % (11.5-17.5); White Blood Count 4.8 K/mm3 (4.8-10.8)
[2022-01-07 09:00] LABS: Chloride 103 mmol/L (98-107); Potassium 4.3 mmoL/L (3.5-5.1); Sodium 133 mmol/L (136-145)
[2022-01-07 09:03] LABS: Alanine Aminotransferase 13 U/L (12-78); Albumin Level 3.6 g/dl (3.5-5.0); Albumin/Globulin Ratio 1.3 (1.1-1.8); Alkaline Phosphatase 53 U/L (38-126); Anion Gap 11.3 mEq/L (5-15); Aspartate Amino Transferase 17 U/L (14-36); Bilirubin,Total 0.6 mg/dl (0.2-1.3); Blood Urea Nitrogen 26 mg/dl (7-17); Carbon Dioxide 23 mmol/L (22.0-30.0); Creatinine Clearance Estimated 49 mL/min (50-200); Estimated Glomerular Filt Rate 40 ml/min (>60); GFR (African American) 48 ML/MIN (>60); Globulin 2.7 g/dL (1.3-3.2); Total Protein,Serum 6.3 g/dl (6.3-8.2)
[2022-01-07 09:04] LABS: Calcium 8.7 mg/dl (8.4-10.2); Glucose 162 mg/dl (74-100)
== END 2022-01-07 14:00 | disposition home or self-care (01) ==
LOC: INF 08:31
PROVIDERS: PCP Family Medicine; Visit Provider Internal Medicine Medical Oncology
DX: Z51.11 Encounter for antineoplastic chemotherapy (principal); C50.912 Malignant neoplasm of unspecified site of left female breast
CPT/HCPCS: 80053; 85025; 96413; 96415; 96417; J1642; J7060; J9267; J9355; Q0166

== ENCOUNTER 2022-01-14 08:32 | Outpatient (CLI) | payer MEDICARE, SELFPAY ==
[2022-01-14] VITALS (9 sets, daily range): BP systolic 107–127; BP diastolic 42–53; PULSE 58–78; RESP 18; TEMP 36.7; O2SAT 98–99; BMI 31.9
[2022-01-14 08:59] LABS: Eosinophils % 0.8 % (0.1-12.0); Hematocrit 29.7 % (37.0-47.0); Lymphocytes % 43.7 % (10-50); Mean Corpuscular HGB Conc 33.8 g/dL (31.8-35.4); Mean Corpuscular Hemoglobin 32.4 pg (27.0-31.2); Mean Corpuscular Volume 95.7 fl (81-99); Mean Platelet Volume 8.6 fl (7.4-10.4); Monocytes # 0.2 K/mm3 (0.1-1.0); Monocytes % 4.5 % (1.7-9.3); Neutrophils # 2.3 K/mm3 (1.8-7.8); Platelet Count 268 K/mm3 (142-424); Red Cell Distribution Width 15.4 % (11.5-17.5); White Blood Count 4.6 K/mm3 (4.8-10.8)
[2022-01-14 09:08] LABS: Chloride 106 mmol/L (98-107)
[2022-01-14 09:09] LABS: Potassium 4.8 mmoL/L (3.5-5.1); Sodium 136 mmol/L (136-145)
[2022-01-14 09:11] LABS: Alanine Aminotransferase 16 U/L (12-78); Aspartate Amino Transferase 20 U/L (14-36); Blood Urea Nitrogen 26 mg/dl (7-17); Creatinine Clearance Estimated 53 mL/min (50-200); Estimated Glomerular Filt Rate 44 ml/min (>60); GFR (African American) 53 ML/MIN (>60)
[2022-01-14 09:12] LABS: Albumin Level 3.7 g/dl (3.5-5.0); Albumin/Globulin Ratio 1.3 (1.1-1.8); Alkaline Phosphatase 51 U/L (38-126); Anion Gap 11.8 mEq/L (5-15); Bilirubin,Total 0.4 mg/dl (0.2-1.3); Calcium 9.2 mg/dl (8.4-10.2); Carbon Dioxide 23 mmol/L (22.0-30.0); Globulin 2.8 g/dL (1.3-3.2); Glucose 131 mg/dl (74-100); Total Protein,Serum 6.5 g/dl (6.3-8.2)
== END 2022-01-14 14:00 | disposition home or self-care (01) ==
LOC: INF 08:33
PROVIDERS: PCP Family Medicine; Visit Provider Internal Medicine Medical Oncology
DX: Z51.11 Encounter for antineoplastic chemotherapy (principal); C50.912 Malignant neoplasm of unspecified site of left female breast
CPT/HCPCS: 80053; 85025; 96413; 96415; 96417; J1642; J7060; J9267; J9355; Q0166

== ENCOUNTER 2022-01-22 08:40 | Outpatient (CLI) | payer MEDICARE, SELFPAY ==
[2022-01-22] VITALS (9 sets, daily range): BP systolic 120–136; BP diastolic 47–59; PULSE 62–71; RESP 18; TEMP 36.4; O2SAT 99–100; BMI 31.9
[2022-01-22 09:16] LABS: Basophils # 0.1 K/mm3 (0-0.2); Basophils % 0.9 % (0.1-2.0); Eosinophils % 0.8 % (0.1-12.0); Hematocrit 31.1 % (37.0-47.0); Hemoglobin 10.4 g/dL (12.2-16.2); Lymphocytes # 1.6 K/mm3 (0.7-4.5); Lymphocytes % 32.7 % (10-50); Mean Corpuscular HGB Conc 33.5 g/dL (31.8-35.4); Mean Corpuscular Hemoglobin 32.5 pg (27.0-31.2); Mean Platelet Volume 8.1 fl (7.4-10.4); Monocytes # 0.2 K/mm3 (0.1-1.0); Monocytes % 4.6 % (1.7-9.3); Neutrophils % 60.9 % (37.0-80.0); Platelet Count 257 K/mm3 (142-424); Red Blood Count 3.21 M/mm3 (4.20-5.40); Red Cell Distribution Width 15.7 % (11.5-17.5); White Blood Count 4.9 K/mm3 (4.8-10.8)
[2022-01-22 09:26] LABS: Chloride 106 mmol/L (98-107); Potassium 4.2 mmoL/L (3.5-5.1); Sodium 137 mmol/L (136-145)
[2022-01-22 09:28] LABS: Blood Urea Nitrogen 22 mg/dl (7-17); Creatinine Clearance Estimated 53 mL/min (50-200); Estimated Glomerular Filt Rate 44 ml/min (>60); GFR (African American) 53 ML/MIN (>60)
[2022-01-22 09:29] LABS: Alanine Aminotransferase 14 U/L (12-78); Albumin Level 3.9 g/dl (3.5-5.0); Albumin/Globulin Ratio 1.3 (1.1-1.8); Alkaline Phosphatase 55 U/L (38-126); Anion Gap 9.2 mEq/L (5-15); Aspartate Amino Transferase 20 U/L (14-36); Bilirubin,Total 0.4 mg/dl (0.2-1.3); Calcium 9.1 mg/dl (8.4-10.2); Carbon Dioxide 26 mmol/L (22.0-30.0); Globulin 2.9 g/dL (1.3-3.2); Glucose 129 mg/dl (74-100); Total Protein,Serum 6.8 g/dl (6.3-8.2)
== END 2022-01-22 14:20 | disposition home or self-care (01) ==
LOC: INF 08:40
PROVIDERS: PCP Family Medicine; Visit Provider Internal Medicine Medical Oncology
DX: Z51.11 Encounter for antineoplastic chemotherapy (principal); C50.912 Malignant neoplasm of unspecified site of left female breast
CPT/HCPCS: 80053; 85025; 96413; 96415; 96417; J1642; J7060; J9267; J9355; Q0166

== ENCOUNTER 2022-01-28 08:32 | Outpatient (CLI) | payer MEDICARE, SELFPAY ==
[2022-01-28] VITALS (10 sets, daily range): BP systolic 119–138; BP diastolic 51–79; PULSE 77–88; RESP 18; TEMP 36.6; O2SAT 97–98; BMI 31.6
[2022-01-28 09:15] LABS: Basophils # 0.1 K/mm3 (0-0.2); Basophils % 1.3 % (0.1-2.0); Eosinophils % 0.7 % (0.1-12.0); Hemoglobin 9.8 g/dL (12.2-16.2); Lymphocytes # 1.6 K/mm3 (0.7-4.5); Lymphocytes % 35.1 % (10-50); Mean Corpuscular HGB Conc 32.7 g/dL (31.8-35.4); Mean Corpuscular Volume 97.9 fl (81-99); Mean Platelet Volume 8.8 fl (7.4-10.4); Monocytes # 0.3 K/mm3 (0.1-1.0); Monocytes % 5.5 % (1.7-9.3); Neutrophils # 2.7 K/mm3 (1.8-7.8); Neutrophils % 57.4 % (37.0-80.0); Platelet Count 233 K/mm3 (142-424); Red Blood Count 3.07 M/mm3 (4.20-5.40); Red Cell Distribution Width 15.7 % (11.5-17.5); White Blood Count 4.7 K/mm3 (4.8-10.8)
[2022-01-28 09:18] LABS: Chloride 107 mmol/L (98-107)
[2022-01-28 09:19] LABS: Potassium 4.2 mmoL/L (3.5-5.1); Sodium 137 mmol/L (136-145)
[2022-01-28 09:21] LABS: Alanine Aminotransferase 16 U/L (12-78); Aspartate Amino Transferase 21 U/L (14-36); Blood Urea Nitrogen 21 mg/dl (7-17); Creatinine Clearance Estimated 53 mL/min (50-200); Estimated Glomerular Filt Rate 44 ml/min (>60); GFR (African American) 53 ML/MIN (>60)
[2022-01-28 09:22] LABS: Albumin Level 3.5 g/dl (3.5-5.0); Albumin/Globulin Ratio 1.3 (1.1-1.8); Alkaline Phosphatase 58 U/L (38-126); Anion Gap 8.2 mEq/L (5-15); Bilirubin,Total 0.4 mg/dl (0.2-1.3); Calcium 8.8 mg/dl (8.4-10.2); Carbon Dioxide 26 mmol/L (22.0-30.0); Globulin 2.6 g/dL (1.3-3.2); Glucose 142 mg/dl (74-100); Total Protein,Serum 6.1 g/dl (6.3-8.2)
== END 2022-01-28 14:07 | disposition home or self-care (01) ==
LOC: INF 08:33
PROVIDERS: PCP Family Medicine; Visit Provider Internal Medicine Medical Oncology
DX: Z51.11 Encounter for antineoplastic chemotherapy (principal); C50.912 Malignant neoplasm of unspecified site of left female breast
CPT/HCPCS: 80053; 85025; 96413; 96415; 96417; J1642; J7060; J9267; J9355; Q0166

== ENCOUNTER 2022-02-04 08:35 | Outpatient (CLI) | payer MEDICARE, SELFPAY ==
[2022-02-04] VITALS (10 sets, daily range): BP systolic 110–136; BP diastolic 47–57; PULSE 61–70; RESP 18; TEMP 36.4; O2SAT 99–100; BMI 31.6
[2022-02-04 09:19] LABS: Chloride 106 mmol/L (98-107)
[2022-02-04 09:20] LABS: Potassium 4.6 mmoL/L (3.5-5.1); Sodium 136 mmol/L (136-145)
[2022-02-04 09:22] LABS: Alanine Aminotransferase 15 U/L (12-78); Alkaline Phosphatase 53 U/L (38-126); Aspartate Amino Transferase 19 U/L (14-36); Bilirubin,Total 0.4 mg/dl (0.2-1.3); Blood Urea Nitrogen 22 mg/dl (7-17); Creatinine Clearance Estimated 57 mL/min (50-200); Estimated Glomerular Filt Rate 48 ml/min (>60); GFR (African American) 58 ML/MIN (>60)
[2022-02-04 09:23] LABS: Albumin Level 3.7 g/dl (3.5-5.0); Albumin/Globulin Ratio 1.3 (1.1-1.8); Anion Gap 9.6 mEq/L (5-15); Calcium 9.9 mg/dl (8.4-10.2); Carbon Dioxide 25 mmol/L (22.0-30.0); Globulin 2.8 g/dL (1.3-3.2); Glucose 150 mg/dl (74-100); Total Protein,Serum 6.5 g/dl (6.3-8.2)
--- NOTE | 2022-02-04 10:58 | PC.NURSE ---
02/04/22 0900 pt presents today for weekly chemo tx. Lab had called and informed us that the cbc analyzer was down and lab specimens were on divert to another facility. pt informed of this and pt ok to wait for results to receive chemo. pt provided with warm blanket and water.
[2022-02-04 11:23] LABS: Hemoglobin 9.9 g/dL (12.2-16.2); Mean Corpuscular HGB Conc 34.1 g/dL (31.8-35.4); Mean Corpuscular Hemoglobin 31.8 pg (27.0-31.2); Mean Corpuscular Volume 93.2 fl (81-99); Platelet Count 228 K/mm3 (142-424); Red Blood Count 3.11 M/mm3 (4.20-5.40); Red Cell Distribution Width 14.6 % (11.5-17.5); White Blood Count 5.9 K/mm3 (4.8-10.8)
[2022-02-04 11:24] LABS: Neutrophils % 50.2 % (37.0-80.0)
[2022-02-04 11:29] LABS: Basophils % 0.5 % (0.1-2.0); Eosinophils # 0.1 K/mm3 (0.0-0.4); Eosinophils % 1.2 % (0.1-12.0); Lymphocytes # 2.2 K/mm3 (0.7-4.5); Monocytes # 0.5 K/mm3 (0.1-1.0); Monocytes % 8.9 % (1.7-9.3)
== END 2022-02-04 15:53 | disposition home or self-care (01) ==
LOC: INF 08:37
PROVIDERS: PCP Family Medicine; Visit Provider Internal Medicine Medical Oncology
DX: Z51.11 Encounter for antineoplastic chemotherapy (principal); C50.912 Malignant neoplasm of unspecified site of left female breast
CPT/HCPCS: 80053; 85025; 96413; 96415; 96417; J1642; J9267; J9355; Q0166

== ENCOUNTER 2022-02-08 08:27 | Outpatient (CLI) | payer MEDICARE, SELFPAY ==
--- NOTE | 2022-02-08 | CA_ITS ---
APPROVED REPORT EXAM: Comprehensive 2D, Doppler, and color-flow Echocardiogram Senior Windows Systems Administrator: Sara Diego CRT Ht: 5 ft 4 in Wt: 190lbs BSA: 1.91 BP: 152/55 mmHg Indications: PT getting chemo since September, Diabetes, Hyperlipidemia, Hypertension/HDD 2D Dimensions LVOT 1.91 cm (M/F) 1.5-2.5 LA Volume 37.90 mL LA Volume Index 19.80 mL/m2 (M/F) 16-34 M-Mode Dimensions RVDd 2.37 cm (0.9-2.6) LA Diam 4.04 cm (1.9-4.0) LVDd 5.31 cm (3.5-5.7) Ao Diam 4.00 cm (2.0-3.7) LVDs 3.67 cm (3.5-5.7) IVSd 1.16 cm (0.6-1.1) PWd 0.62 cm (0.6-1.1) EF (Teich) 58.10% FS 30.90% EDV (Teich) 135.90 mL TAPSE 2.30 (<1.7) ESV (Teich) 57.00 mL LV Diastology E Decel Time 200.00 (160-240 msec) E/A Ratio 0.72 MED E' 5.20 (< 7 cm/sec) MED A' 9.50 cm/s E'/MED E' Ratio 12.12 (>14) LAT E' 8.40 (<10 cm/sec) LAT A' 11.30 cm/s E/LAT E' Ratio 7.50 (>14) Aortic Valve AI PHT 444.00 ms AO Peak GR. 6.60 mmHg Mitral Valve MV E Max Joseph. 63.00 (40-130 cm/s) MV A Velocity 88.00 (40-130 cm/s) E/A Ratio 0.72 MV Decel. Time 200.00 (160-240 ms) MV PHT 59.00 ms Pulmonary Valve PV Peak Velocity 99.00 (50-150 cm/s) Tricuspid Valve TR P. Velocity 259.00 cm/s RAP Estimate 10.00 mmHg RVSP 36.80 mmHg Left Ventricle Left atrium is mildly enlarged, left ventricle is normal size, mild concentric left ventricular hypertrophy, estimated ejection fraction 55% with no regional wall motion abnormality, grade 1 diastolic dysfunction seen without tissue Doppler evidence of raise left atrial pressure. Right Ventricle Right atrium and right ventricle are normal size and contractility. Aortic Valve Aortic valve is minimally thickened and calcified without aortic stenosis, there is mild aortic insufficiency. Mitral Valve Mitral valve is grossly normal, there is mild mitral regurgitation. Tricuspid Valve Tricuspid valve grossly normal, there is mild tricuspid regurgitation, tricuspid regurgitation jet velocity is inadequate for calculation of the right ventricular systolic pressure. Pulmonic Valve Pulmonic valve is poorly visualized. Great Vessels Aortic root is normal size. Inferior vena cava is poorly visualized. Pericardium No significant pericardial effusion noted. Conclusion 1. Mildly enlarged left atrium, normal left ventricular size, mild concentric left ventricular hypertrophy, estimated ejection fraction 55% with no regional wall motion abnormality, grade 1 diastolic dysfunction seen without tissue Doppler evidence of raise left atrial pressure. 2. Thickened and calcified aortic valve without aortic stenosis, there is mild aortic insufficiency. 3. Mild mitral and tricuspid regurgitation. 4. No significant pericardial effusion noted. 5. Inferior vena cava is poorly visualized. Electronically signed by : Adonay Donovan MD 02/08/2022 13:39:06
--- NOTE | 2022-02-08 09:34 | CT_ITS ---
FINAL REPORT TECHNIQUE: Axial images through the chest were performed by computed tomography before and after the administration of IV contrast. This study was performed with techniques to keep radiation doses as low as reasonably achievable, (ALARA). Individualized dose reduction techniques using automated exposure control or adjustment of mA and/or kV according to the patient's size were employed. CLINICAL HISTORY: BREAST CANCER COMPARISON: September 10, 2021 FINDINGS: A right jugular port is present. There is marked improvement in a left breast mass measuring 26 mm in previously measured 48 mm. There is marked improvement in left axillary adenopathy. A medial left axillary lymph node measures 9 mm and previously measured 28 mm. There is no hilar or mediastinal adenopathy. The heart size is normal. There are severe coronary artery calcifications. There is no pericardial or pleural effusion. Limited images of the upper abdomen are unremarkable. On the lung window images there is a mild pulmonary scarring. There is a stable lateral right upper lobe nodule measuring 6 mm. There are several nodules in the region of the minor fissure which are stable. There is a stable posterior left lower lobe nodule measuring 6 mm. There is a calcified granuloma in the right lower lobe. No new pulmonary mass or nodules identified. IMPRESSION: Markedly improved left breast mass and left axillary adenopathy. Stable small pulmonary nodules, nonspecific. No new mass or nodule identified Reviewed, Interpreted and Dictated by Raj Pacheco III, MD Transcribed by Milana Rothman Authenticated by Raj Pacheco III, MD on 02/08/2022 02:01:11 PM [facility]
--- NOTE | 2022-02-08 09:34 | CT_ITS ---
FINAL REPORT TECHNIQUE: Axial CT images of the abdomen and pelvis were obtained before and after the administration of IV contrast. Oral contrast was administered.This study was performed with techniques to keep radiation doses as low as reasonably achievable (ALARA). Individualized dose reduction techniques using automated exposure control or adjustment of mA and/or kV according to the patient''s size were employed. CLINICAL HISTORY: BREAST CANCER FINDINGS: Abdomen: The lung bases are clear. The heart is normal in size. The liver has an unremarkable appearance, without evidence of mass or biliary duct dilatation. The patient is status post cholecystectomy. There is moderate biliary ductal dilatation which may represent post cholecystectomy change. There is a small probable cyst or hemangioma within the spleen. No adrenal masses present. The pancreas has an unremarkable appearance. There is a 5.4 cm fat attenuation left renal mass consistent with an angiomyolipoma, stable. The aorta is normal in caliber. There is no free fluid or adenopathy. No mass or abnormal fluid collection is seen. There are moderate vascular calcifications. Precontrast images demonstrate no evidence of nephrolithiasis. Pelvis: The appendix is normal. There are postoperative changes from hysterectomy. The urinary bladder is unremarkable. No inflammatory process is seen. There is no evidence of mass or adenopathy. There is no evidence of bowel obstruction. On the bone window images there are several stable less than 5 mm sclerotic foci in the lumbar spine and pelvis of uncertain etiology. This finding could represent small bone islands however sclerotic bony Mets are not entirely excluded. IMPRESSION: Stable left renal angiomyolipoma. Several stable less than 5 mm sclerotic foci in the lumbar spine and pelvis of uncertain etiology, may represent small bone islands however sclerotic bony Mets are not entirely excluded. Reviewed, Interpreted and Dictated by Raj Pacheco III, MD Transcribed by Milana Rothman Authenticated by Raj Pacheco III, MD on 02/08/2022 02:01:16 PM [facility]
== END 2022-02-08 10:15 | disposition home or self-care (01) ==
LOC: INF 08:30
PROVIDERS: PCP Family Medicine; Visit Provider Internal Medicine Medical Oncology
DX: C50.912 Malignant neoplasm of unspecified site of left female breast (principal); Z17.1 Estrogen receptor negative status [ER-]; Z03.89 Encounter for observation for other suspected diseases and conditions ruled out; Z45.2 Encounter for adjustment and management of vascular access device; R06.09 Other forms of dyspnea
CPT/HCPCS: 71270; 74178; 93306; 96523; J1642; Q9967

== ENCOUNTER 2022-02-11 08:05 | Outpatient (CLI) | payer MEDICARE, SELFPAY ==
[2022-02-11] VITALS (17 sets, daily range): BP systolic 110–128; BP diastolic 48–58; PULSE 59–63; RESP 16; TEMP 36.1; O2SAT 100; BMI 31.6
[2022-02-11 08:30] LABS: Basophils # 0.1 K/mm3 (0-0.2); Basophils % 1.1 % (0.1-2.0); Eosinophils # 0.1 K/mm3 (0.0-0.4); Eosinophils % 1.1 % (0.1-12.0); Hematocrit 30.6 % (37.0-47.0); Hemoglobin 10.3 g/dL (12.2-16.2); Lymphocytes # 1.7 K/mm3 (0.7-4.5); Lymphocytes % 36.2 % (10-50); Mean Corpuscular HGB Conc 33.6 g/dL (31.8-35.4); Mean Corpuscular Hemoglobin 32.7 pg (27.0-31.2); Mean Corpuscular Volume 97.1 fl (81-99); Mean Platelet Volume 8.7 fl (7.4-10.4); Monocytes # 0.2 K/mm3 (0.1-1.0); Monocytes % 5.3 % (1.7-9.3); Neutrophils # 2.6 K/mm3 (1.8-7.8); Neutrophils % 56.3 % (37.0-80.0); Platelet Count 220 K/mm3 (142-424); Red Blood Count 3.15 M/mm3 (4.20-5.40); Red Cell Distribution Width 15.6 % (11.5-17.5); White Blood Count 4.6 K/mm3 (4.8-10.8)
[2022-02-11 08:38] LABS: Chloride 106 mmol/L (98-107); Potassium 4.3 mmoL/L (3.5-5.1); Sodium 136 mmol/L (136-145)
[2022-02-11 08:40] LABS: Blood Urea Nitrogen 26 mg/dl (7-17); Creatinine Clearance Estimated 42 mL/min (50-200); Estimated Glomerular Filt Rate 34 ml/min (>60); GFR (African American) 41 ML/MIN (>60)
[2022-02-11 08:41] LABS: Alanine Aminotransferase 17 U/L (12-78); Albumin Level 3.6 g/dl (3.5-5.0); Albumin/Globulin Ratio 1.4 (1.1-1.8); Alkaline Phosphatase 53 U/L (38-126); Anion Gap 12.3 mEq/L (5-15); Aspartate Amino Transferase 21 U/L (14-36); Bilirubin,Total 0.4 mg/dl (0.2-1.3); Calcium 9.2 mg/dl (8.4-10.2); Carbon Dioxide 22 mmol/L (22.0-30.0); Globulin 2.6 g/dL (1.3-3.2); Glucose 201 mg/dl (74-100); Total Protein,Serum 6.2 g/dl (6.3-8.2)
== END 2022-02-11 14:20 | disposition home or self-care (01) ==
LOC: INF 08:06
PROVIDERS: PCP Family Medicine; Visit Provider Internal Medicine Medical Oncology
DX: Z51.11 Encounter for antineoplastic chemotherapy (principal); C50.912 Malignant neoplasm of unspecified site of left female breast; Z17.1 Estrogen receptor negative status [ER-]
CPT/HCPCS: 80053; 85025; 96413; 96415; 96417; J1642; J9267; J9355; Q0166

== ENCOUNTER → 2022-02-18 08:03 | Outpatient (CLI) | payer MEDICARE, SELFPAY ==
[2022-02-18] VITALS (9 sets, daily range): BP systolic 112–122; BP diastolic 51–74; PULSE 68–88; RESP 18–20; TEMP 35.9–36.9; O2SAT 95; BMI 31.6
[2022-02-18 09:09] LABS: Basophils # 0.1 K/mm3 (0-0.2); Basophils % 1.2 % (0.1-2.0); Eosinophils % 0.8 % (0.1-12.0); Hemoglobin 10.3 g/dL (12.2-16.2); Lymphocytes # 1.5 K/mm3 (0.7-4.5); Lymphocytes % 32.7 % (10-50); Mean Corpuscular HGB Conc 34.3 g/dL (31.8-35.4); Mean Corpuscular Hemoglobin 32.6 pg (27.0-31.2); Mean Corpuscular Volume 95.1 fl (81-99); Mean Platelet Volume 8.9 fl (7.4-10.4); Monocytes # 0.3 K/mm3 (0.1-1.0); Monocytes % 5.4 % (1.7-9.3); Neutrophils # 2.7 K/mm3 (1.8-7.8); Neutrophils % 59.9 % (37.0-80.0); Platelet Count 223 K/mm3 (142-424); Red Blood Count 3.15 M/mm3 (4.20-5.40); Red Cell Distribution Width 15.4 % (11.5-17.5); White Blood Count 4.6 K/mm3 (4.8-10.8)
[2022-02-18 09:11] LABS: Alanine Aminotransferase 17 U/L (12-78); Albumin Level 3.7 g/dl (3.5-5.0); Albumin/Globulin Ratio 1.5 (1.1-1.8); Alkaline Phosphatase 53 U/L (38-126); Anion Gap 11.3 mEq/L (5-15); Aspartate Amino Transferase 21 U/L (14-36); Blood Urea Nitrogen 21 mg/dl (7-17); Calcium 9.7 mg/dl (8.4-10.2); Carbon Dioxide 27 mmol/L (22.0-30.0); Chloride 103 mmol/L (98-107); Creatinine Clearance Estimated 57 mL/min (50-200); Estimated Glomerular Filt Rate 48 ml/min (>60); GFR (African American) 58 ML/MIN (>60); Globulin 2.5 g/dL (1.3-3.2); Glucose 145 mg/dl (74-100); Potassium 4.3 mmoL/L (3.5-5.1); Sodium 137 mmol/L (136-145); Total Protein,Serum 6.2 g/dl (6.3-8.2)
[2022-02-18 09:12] LABS: Bilirubin,Total 0.1 mg/dl (0.2-1.3)
== END ==
PROVIDERS: PCP Family Medicine; Visit Provider Internal Medicine Medical Oncology
DX: Z51.11 Encounter for antineoplastic chemotherapy (principal); C50.912 Malignant neoplasm of unspecified site of left female breast
CPT/HCPCS: 80053; 85025; 96413; 96415; 96417; J1642; J9267; J9355; Q0166

== ENCOUNTER 2022-02-25 08:37 | Outpatient (CLI) | payer MEDICARE, SELFPAY ==
[2022-02-25] VITALS (9 sets, daily range): BP systolic 116–126; BP diastolic 49–59; PULSE 64–84; RESP 18; TEMP 36.6; O2SAT 98–99; BMI 32.8
[2022-02-25 09:11] LABS: Basophils % 0.8 % (0.1-2.0); Eosinophils % 0.7 % (0.1-12.0); Hematocrit 30.4 % (37.0-47.0); Hemoglobin 10.4 g/dL (12.2-16.2); Lymphocytes # 1.5 K/mm3 (0.7-4.5); Lymphocytes % 33.6 % (10-50); Mean Corpuscular HGB Conc 34.1 g/dL (31.8-35.4); Mean Corpuscular Hemoglobin 32.4 pg (27.0-31.2); Mean Corpuscular Volume 94.9 fl (81-99); Mean Platelet Volume 8.4 fl (7.4-10.4); Monocytes # 0.2 K/mm3 (0.1-1.0); Neutrophils # 2.6 K/mm3 (1.8-7.8); Platelet Count 240 K/mm3 (142-424); Red Blood Count 3.21 M/mm3 (4.20-5.40); Red Cell Distribution Width 15.4 % (11.5-17.5); White Blood Count 4.3 K/mm3 (4.8-10.8)
[2022-02-25 09:13] LABS: Chloride 107 mmol/L (98-107); Sodium 138 mmol/L (136-145)
[2022-02-25 09:14] LABS: Potassium 4.2 mmoL/L (3.5-5.1)
[2022-02-25 09:16] LABS: Alanine Aminotransferase 18 U/L (12-78); Albumin Level 3.6 g/dl (3.5-5.0); Albumin/Globulin Ratio 1.3 (1.1-1.8); Alkaline Phosphatase 50 U/L (38-126); Anion Gap 11.2 mEq/L (5-15); Aspartate Amino Transferase 22 U/L (14-36); Bilirubin,Total 0.4 mg/dl (0.2-1.3); Blood Urea Nitrogen 24 mg/dl (7-17); Carbon Dioxide 24 mmol/L (22.0-30.0); Creatinine Clearance Estimated 55 mL/min (50-200); Estimated Glomerular Filt Rate 44 ml/min (>60); GFR (African American) 53 ML/MIN (>60); Globulin 2.7 g/dL (1.3-3.2); Total Protein,Serum 6.3 g/dl (6.3-8.2)
[2022-02-25 09:17] LABS: Calcium 9.7 mg/dl (8.4-10.2); Glucose 159 mg/dl (74-100)
== END 2022-02-25 14:00 | disposition home or self-care (01) ==
LOC: INF 08:37
PROVIDERS: PCP Family Medicine; Visit Provider Internal Medicine Medical Oncology
DX: Z51.11 Encounter for antineoplastic chemotherapy (principal); C50.912 Malignant neoplasm of unspecified site of left female breast; Z17.1 Estrogen receptor negative status [ER-]
CPT/HCPCS: 80053; 85025; 96413; 96415; 96417; J1642; J9267; J9355; Q0166

== ENCOUNTER 2022-03-04 08:29 | Outpatient (CLI) | payer MEDICARE, SELFPAY ==
[2022-03-04 08:39] VITALS: BMI 32.8
[2022-03-04 08:58] LABS: Basophils # 0.1 K/mm3 (0-0.2); Basophils % 1.4 % (0.1-2.0); Eosinophils % 0.7 % (0.1-12.0); Hematocrit 30.7 % (37.0-47.0); Hemoglobin 10.4 g/dL (12.2-16.2); Lymphocytes # 1.4 K/mm3 (0.7-4.5); Lymphocytes % 32.3 % (10-50); Mean Corpuscular HGB Conc 33.8 g/dL (31.8-35.4); Mean Corpuscular Hemoglobin 32.4 pg (27.0-31.2); Mean Corpuscular Volume 95.9 fl (81-99); Mean Platelet Volume 8.9 fl (7.4-10.4); Monocytes # 0.2 K/mm3 (0.1-1.0); Monocytes % 5.4 % (1.7-9.3); Neutrophils # 2.7 K/mm3 (1.8-7.8); Neutrophils % 60.2 % (37.0-80.0); Platelet Count 216 K/mm3 (142-424); Red Cell Distribution Width 15.6 % (11.5-17.5); White Blood Count 4.4 K/mm3 (4.8-10.8)
[2022-03-04 09:04] LABS: Alanine Aminotransferase 24 U/L (12-78); Albumin Level 3.6 g/dl (3.5-5.0); Albumin/Globulin Ratio 1.3 (1.1-1.8); Alkaline Phosphatase 52 U/L (38-126); Anion Gap 12.2 mEq/L (5-15); Aspartate Amino Transferase 25 U/L (14-36); Bilirubin,Total 0.2 mg/dl (0.2-1.3); Blood Urea Nitrogen 21 mg/dl (7-17); Calcium 9.3 mg/dl (8.4-10.2); Carbon Dioxide 25 mmol/L (22.0-30.0); Chloride 106 mmol/L (98-107); Creatinine Clearance Estimated 60 mL/min (50-200); Estimated Glomerular Filt Rate 48 ml/min (>60); GFR (African American) 58 ML/MIN (>60); Globulin 2.7 g/dL (1.3-3.2); Glucose 162 mg/dl (74-100); Potassium 4.2 mmoL/L (3.5-5.1); Sodium 139 mmol/L (136-145); Total Protein,Serum 6.3 g/dl (6.3-8.2)
== END 2022-03-04 10:24 | disposition home or self-care (01) ==
LOC: INF 08:30
PROVIDERS: PCP Family Medicine; Visit Provider Internal Medicine Medical Oncology
DX: C50.912 Malignant neoplasm of unspecified site of left female breast (principal)
CPT/HCPCS: 36591; 80053; 85025; J1642

== ENCOUNTER → 2022-03-05 13:21 | Outpatient (CLI) | payer MEDICARE, SELFPAY ==
--- NOTE | 2022-03-05 13:21 | MM_ITS ---
PROCEDURE INFORMATION: Exam: Left Diagnostic Breast Tomosynthesis Exam date and time: 03/05/2022 1:50 PM Age: 76 years old Clinical indication: Mastectomy right, known breast cancer left, currently on chemo prior to surgery TECHNIQUE: Imaging protocol: Left Diagnostic tomosynthesis and 2D mammography including computer-aided detection (CAD) when performed. Unilateral or bilateral exam. COMPARISON: No relevant prior studies available. FINDINGS: MAMMOGRAPHY: The breast tissue is composed of scattered areas of fibroglandular density. Ill-defined mass containing a clip in the middle third of the left slightly lower slightly lateral breast measures approximately 5.6 x 2.6 x 3.7 cm in dimension. There are no prior mammograms available for comparison. Sonography performed 12/17/2021 demonstrated the mass in the inferior breast to measure 4.0 x 1.0 x 3.3 cm. No skin thickening or axillary adenopathy. IMPRESSION: Biopsy-proven carcinoma in the left lower outer quadrant. Significantly ill-defined margins on mammography. Follow-up sonography may prove more useful to assess potential response to neoadjuvant chemotherapy. ASSESSMENT: BI-RADS Category 6: Known Biopsy-Proven Malignancy
== END ==
PROVIDERS: PCP Family Medicine; Visit Provider Surgery
DX: Z08 Encounter for follow-up examination after completed treatment for malignant neoplasm (principal); Z86.000 Personal history of in-situ neoplasm of breast
CPT/HCPCS: 77061; 77065; G0279

== ENCOUNTER 2022-03-11 08:32 | Outpatient (CLI) | payer MEDICARE, SELFPAY ==
[2022-03-11 08:40] VITALS: BMI 32.5
[2022-03-11 08:48] VITALS: BP 121/64; PULSE 71; RESP 18; TEMP 36.6; O2SAT 98
[2022-03-11 09:31] VITALS: BP 129/56; PULSE 64; RESP 18; O2SAT 98
[2022-03-11 10:01] VITALS: BP 120/56; PULSE 61; RESP 18; O2SAT 99
[2022-03-11 10:31] VITALS: BP 127/46; PULSE 77; RESP 18; O2SAT 98
[2022-03-11 10:50] VITALS: BP 125/54; PULSE 60; RESP 18; O2SAT 97
== END 2022-03-11 10:55 | disposition home or self-care (01) ==
LOC: INF 08:33
PROVIDERS: PCP Family Medicine; Visit Provider Internal Medicine Medical Oncology
DX: Z51.11 Encounter for antineoplastic chemotherapy (principal); C50.412 Malignant neoplasm of upper-outer quadrant of left female breast
CPT/HCPCS: 96413; J1642; J9355

== ENCOUNTER 2022-04-01 08:34 | Outpatient (CLI) | payer MEDICARE, SELFPAY ==
[2022-04-01 08:53] VITALS: BMI 31.7
[2022-04-01 09:14] LABS: Basophils # 0.1 K/mm3 (0-0.2); Basophils % 1.8 % (0.1-2.0); Eosinophils # 0.1 K/mm3 (0.0-0.4); Eosinophils % 1.8 % (0.1-12.0); Hematocrit 34.1 % (37.0-47.0); Hemoglobin 11.5 g/dL (12.2-16.2); Lymphocytes # 2.1 K/mm3 (0.7-4.5); Lymphocytes % 29.1 % (10-50); Mean Corpuscular HGB Conc 33.8 g/dL (31.8-35.4); Mean Corpuscular Hemoglobin 31.9 pg (27.0-31.2); Mean Corpuscular Volume 94.4 fl (81-99); Mean Platelet Volume 8.2 fl (7.4-10.4); Monocytes # 0.4 K/mm3 (0.1-1.0); Monocytes % 5.8 % (1.7-9.3); Neutrophils # 4.5 K/mm3 (1.8-7.8); Neutrophils % 61.4 % (37.0-80.0); Platelet Count 246 K/mm3 (142-424); Red Blood Count 3.62 M/mm3 (4.20-5.40); Red Cell Distribution Width 14.3 % (11.5-17.5); White Blood Count 7.3 K/mm3 (4.8-10.8)
[2022-04-01 09:20] LABS: Chloride 105 mmol/L (98-107); Potassium 4.2 mmoL/L (3.5-5.1); Sodium 138 mmol/L (136-145)
[2022-04-01 09:23] LABS: Alanine Aminotransferase 19 U/L (12-78); Albumin Level 4.2 g/dl (3.5-5.0); Albumin/Globulin Ratio 1.4 (1.1-1.8); Alkaline Phosphatase 57 U/L (38-126); Anion Gap 12.2 mEq/L (5-15); Aspartate Amino Transferase 29 U/L (14-36); Bilirubin,Total 0.5 mg/dl (0.2-1.3); Blood Urea Nitrogen 24 mg/dl (7-17); Carbon Dioxide 25 mmol/L (22.0-30.0); Creatinine Clearance Estimated 63 mL/min (50-200); Estimated Glomerular Filt Rate 54 ml/min (>60); GFR (African American) 65 ML/MIN (>60); Globulin 2.9 g/dL (1.3-3.2); Total Protein,Serum 7.1 g/dl (6.3-8.2)
[2022-04-01 09:24] LABS: Calcium 10.1 mg/dl (8.4-10.2); Glucose 160 mg/dl (74-100)
[2022-04-01 11:00] VITALS: BP 130/61; PULSE 64; RESP 16; TEMP 36.8; O2SAT 100
[2022-04-01 11:15] VITALS: BP 123/55; PULSE 61; RESP 16
[2022-04-01 11:30] VITALS: BP 140/81; PULSE 59; RESP 16
[2022-04-01 11:45] VITALS: BP 130/47; PULSE 61; RESP 16
[2022-04-01 12:00] VITALS: BP 135/61; PULSE 61; RESP 16
[2022-04-01 12:10] VITALS: BP 141/60; PULSE 60; RESP 16
== END 2022-04-01 12:30 | disposition home or self-care (01) ==
LOC: INF 08:35
PROVIDERS: PCP Family Medicine; Visit Provider Internal Medicine Medical Oncology
DX: Z51.11 Encounter for antineoplastic chemotherapy (principal); C50.912 Malignant neoplasm of unspecified site of left female breast; Z17.1 Estrogen receptor negative status [ER-]
CPT/HCPCS: 80053; 85025; 96413; J1642; J9355

== ENCOUNTER → 2022-04-17 10:14 | Outpatient (CLI) | payer MEDICARE, SELFPAY ==
[2022-04-17 10:58] LABS: Basophils % 0.4 % (0.1-2.0); Eosinophils # 0.1 K/mm3 (0.0-0.4); Eosinophils % 1.9 % (0.1-12.0); Hematocrit 34.5 % (37.0-47.0); Hemoglobin 11.7 g/dL (12.2-16.2); Lymphocytes # 2.5 K/mm3 (0.7-4.5); Lymphocytes % 34.5 % (10-50); Mean Corpuscular HGB Conc 33.9 g/dL (31.8-35.4); Mean Corpuscular Hemoglobin 29.9 pg (27.0-31.2); Mean Corpuscular Volume 88.2 fl (81-99); Mean Platelet Volume 7.8 fl (7.4-10.4); Monocytes # 0.3 K/mm3 (0.1-1.0); Monocytes % 4.7 % (1.7-9.3); Neutrophils # 4.2 K/mm3 (1.8-7.8); Neutrophils % 58.5 % (37.0-80.0); Platelet Count 215 K/mm3 (142-424); Red Blood Count 3.91 M/mm3 (4.20-5.40); Red Cell Distribution Width 12.9 % (11.5-17.5); White Blood Count 7.2 K/mm3 (4.8-10.8)
[2022-04-17 11:17] LABS: Alanine Aminotransferase 12 U/L (12-78); Albumin/Globulin Ratio 1.4 (1.1-1.8); Alkaline Phosphatase 63 U/L (38-126); Anion Gap 13.7 mEq/L (5-15); Aspartate Amino Transferase 17 U/L (14-36); Blood Urea Nitrogen 24 mg/dl (7-17); Calcium 10.2 mg/dl (8.4-10.2); Carbon Dioxide 27 mmol/L (22.0-30.0); Chloride 101 mmol/L (98-107); Estimated Glomerular Filt Rate 48 ml/min (>60); GFR (African American) 58 ML/MIN (>60); Globulin 2.9 g/dL (1.3-3.2); Glucose 161 mg/dl (74-100); Potassium 4.7 mmoL/L (3.5-5.1); Sodium 137 mmol/L (136-145); Total Protein,Serum 6.9 g/dl (6.3-8.2)
[2022-04-17 11:21] LABS: Bilirubin,Total 0.1 mg/dl (0.2-1.3)
== END ==
PROVIDERS: PCP Family Medicine; Visit Provider Surgery
DX: Z01.810 Encounter for preprocedural cardiovascular examination (principal); C50.919 Malignant neoplasm of unspecified site of unspecified female breast
CPT/HCPCS: 36415; 80053; 85025; C9803; U0003; U0005

== ENCOUNTER 2022-04-19 08:09 | Observation (INO) | payer MEDICARE, SELFPAY ==
[2022-04-15 13:59] VITALS: BMI 32.5
[2022-04-19] VITALS (24 sets, daily range): BP systolic 99–147; BP diastolic 42–68; PULSE 64–94; RESP 16–19; TEMP 36.2–38; O2SAT 94–100; BMI 32.5
[2022-04-19 08:33] LABS: POC Glucose,Bedside 171 (70-110)
--- NOTE | 2022-04-19 08:55 | HMH.PHAINT ---
MEDICATION RECONCILIATION COMPLETED ON PATIENT USING EXTERNAL FILL HISTORY FROM PHARMACY. -ROBERT YBARRA, DOD
--- NOTE | 2022-04-19 08:59 | P.PN_ITS ---
[facility] Anesthesia Checklist - Patient Identification Patient Identification: Arm Band, Verbal (Name & ) - Structural Data Admitted From: Home Planned Operative Procedure/s: Left Breast Mastectomy Consent for Planned Operative Procedure(s) Verified: Yes Verified Documents: Surgical Consent - NPO Status Verified Time NPO: 18:30 - Chart Verification Results Verified: CBC, BMP - Additional verifications Anesthesia Reactions: No Hx Blood Transfusions: No Blood Transfusion Reaction: No - Airway Assessment C-Spine Mobility Assessed: Yes TMJ Mobility Assessed: Yes Dentition: Edentulous - Neurological Assessment Level of Consciousness: Awake, Alert, Appropriate - Anesthesia Plan Anesthesia Risk discussed: Yes ASA Class: III Anesthesia Type: General [facility] History I have reviewed the patient's past medical history: Yes Medical History: Reports:: Cancer, Diabetes Mellitus Type 2, Hyperlipidemia, Hypertension Denies:: Diabetes Mellitus Type 1, MRSA, Seizures *Have you ever received a pneumonia vaccine?: No *Have you received a flu vaccine this season?: Yes Other Medical History: Reports: Arthritis, Chemotherapy. Denies: Blood Transfusion Reaction Anesthesia experience/problems:: none Other Surgeries: Yes: Cholecystectomy, Hysterectomy-Total, Other Amputation: No - *Social History Last grade of school completed: 7th or 8th Smoking Status: Never smoker Alcohol Intake: never Substance Use Type: denies use *Occupational Status:: retired Housing: house Household Members: spouse *Travel in the last 8 weeks: None Family Hx:: Cancer, Diabetes, Hyperlipidemia, Hypertension, Thyroid Disorder
--- NOTE | 2022-04-19 10:02 | HMH.GSHP ---
HPI HPI: Patient is a 76-year-old old female from [facility].? Her primary care provider is Jaiden Whittington.? She was referred by Dr. Mayte Wells for left breast cancer.? Patient had apparently had a left breast mass noted over a year ago.? She admits that she had neglected this for some time.? She had undergone imaging at [facility] on 08/18/2021 which revealed 4 cm mass in the inferior left breast with enlarged axillary lymph nodes.? She did undergo biopsy at [facility] on 08/24/2021 which revealed invasive ductal carcinoma, grade 3 which was ER negative, OK negative, HER2/susanne positive.? Lymph node was biopsied which was consistent with invasive metastatic carcinoma.? She had seen surgeon in [place], Dr. Ferdinand Sloan, who felt that this was relatively advanced breast cancer with positive lymph nodes.? This is clinically at least a T2 into stage III carcinoma.? Apparently she actually even had overlying skin changes on initial evaluation.? Port was placed.? She had been started on neoadjuvant therapy with weekly Taxol, Herceptin, Perjeta.? She has had some significant improvement clinically in the lesion and she was sent for surgical consultation for possible surgery as there is no longer any surgical availability in [facility]. During my initial consultation with the patient I had a very long discussion with her.? Given the lack of clear widespread metastatic disease I feel that it may be reasonable to pursue surgery.? I did discuss with her that she may actually even be a candidate for consideration of breast conservation with axillary lymphadenectomy with radiation.? Patient states that she would be unable to undergo radiation.? I also discussed with her the potential for referral for potential breast conservation surgery with radiation seed implants at [facility].? She states that she would be unable to even travel to for consultations or for limited surgical care.? She had come to the conclusion and resigned to the fact that she would undergo modified radical mastectomy.? Prior to proceeding with this had her undergo breast imaging with mammogram.? She has had a recent breast ultrasound. Her findings on follow-up diagnostic mammography revealed a ill-defined mass containing clip in the mid left breast measuring 5.6 x 2.6 x 3.7 cm. Of note, ultrasound performed on 12/17/2021 demonstrated mass measuring 4.0 x 1.0 x 3.3 with no axillary adenopathy. [facility] History I have reviewed the patient's past medical history: Yes Medical History: Reports:: Cancer, Diabetes Mellitus Type 2, Hyperlipidemia, Hypertension Denies:: Diabetes Mellitus Type 1, MRSA, Seizures *Have you ever received a pneumonia vaccine?: No *Have you received a flu vaccine this season?: Yes Other Medical History: Reports: Arthritis, Chemotherapy. Denies: Blood Transfusion Reaction Anesthesia experience/problems:: none Other Surgeries: Yes: Cholecystectomy, Hysterectomy-Total, Other Amputation: No - *Social History Last grade of school completed: 7th or 8th Smoking Status: Never smoker Alcohol Intake: never Substance Use Type: denies use *Occupational Status:: retired Housing: house Household Members: spouse *Travel in the last 8 weeks: None Family Hx:: Cancer, Diabetes, Hyperlipidemia, Hypertension, Thyroid Disorder Review of Systems - Review of Systems Review of systems:: pertinent systems reviewed and negative unless documented below Meds Home Medications Medication Instructions Recorded Confirmed Type hydrochlorothiazide 25 mg tablet 25 mg PO DAILY tab 08/31/21 04/19/22 History lisinopril 40 mg tablet 40 mg PO DAILY tab 08/31/21 04/19/22 History metformin 500 mg tablet 500 mg PO BIDWMEAL tab 08/31/21 04/19/22 History metoprolol tartrate 50 mg tablet 50 mg PO BID tab 08/31/21 04/19/22 History Ondansetron [Ondansetron Odt 8mg 8 mg PO TIDP PRN 04/19/22 04/19/22 History Tab] Allergies Allergy/AdvReac Type Severity
--- NOTE | 2022-04-19 13:48 | P.PN_ITS ---
[facility] Anesthesia Record Part I Intake, IV Amount: 700 Estimated blood loss (mL): 50 Urine output (mL): 0 Blood Pressure: 109/54 SaO2: 94 Pulse Rate: 94 Respiratory Rate: 17 Temperature: 97.2 F Patient is:: Awake Stable to PACU at:: 13:45
--- NOTE | 2022-04-19 14:07 | HMH.OPNOTE ---
Date of procedure: 04/19/22 Pre-op Diagnosis:: Left breast cancer Post-op Diagnosis:: Same Procedure performed:: Left modified radical mastectomy Surgeon:: Raj Gramajo MD LOT BOSS:: John De Anesthesia: GETHoda Estimated blood loss (mL): 75 Clinical Note:: Patient is a 76-year-old old female from [facility].? Her primary care provider is Jaiden Whittington.? She was referred by Dr. Mayte Wells for left breast cancer.? Patient had apparently had a left breast mass noted over a year ago.? She admits that she had neglected this for some time.? She had undergone imaging at [facility] on 08/18/2021 which revealed 4 cm mass in the inferior left breast with enlarged axillary lymph nodes.? She did undergo biopsy at [facility] on 08/24/2021 which revealed invasive ductal carcinoma, grade 3 which was ER negative, AR negative, HER2/susanne positive.? Lymph node was biopsied which was consistent with invasive metastatic carcinoma.? She had seen surgeon in [place], Dr. Ferdinand Sloan, who felt that this was relatively advanced breast cancer with positive lymph nodes.? This is clinically at least a T2 into stage III carcinoma.? Apparently she actually even had overlying skin changes on initial evaluation.? Port was placed.? She had been started on neoadjuvant therapy with weekly Taxol, Herceptin, Perjeta.? She has had some significant improvement clinically in the lesion and she was sent for surgical consultation for possible surgery as there is no longer any surgical availability in [facility]. During my initial consultation with the patient I had a very long discussion with her.? Given the lack of clear widespread metastatic disease I feel that it may be reasonable to pursue surgery.? I did discuss with her that she may actually even be a candidate for consideration of breast conservation with axillary lymphadenectomy with radiation.? Patient states that she would be unable to undergo radiation.? I also discussed with her the potential for referral for potential breast conservation surgery with radiation seed implants at [facility].? She states that she would be unable to even travel to for consultations or for limited surgical care.? She had come to the conclusion and resigned to the fact that she would undergo modified radical mastectomy.? Prior to proceeding with this had her undergo breast imaging with mammogram.? She has had a recent breast ultrasound. Her findings on follow-up diagnostic mammography revealed a ill-defined mass containing clip in the mid left breast measuring 5.6 x 2.6 x 3.7 cm. Of note, ultrasound performed on 12/17/2021 demonstrated mass measuring 4.0 x 1.0 x 3.3 with no axillary adenopathy. Operative findings:: Inferioromedial mass. Operative note:: Patient was taken to the operating room. She was given preoperative intravenous antibiotics. In the operating room she was placed in a supine position. General anesthesia was induced via endotracheal tube. Left chest and upper extremity were prepped and draped in the standard surgical fashion. Skin was marked with a skin marker for planned elliptical incision excising the areola. Skin incision was performed. Superior and inferior skin flaps were raised in the subcutaneous plane using electrocautery. Dissection was carried down to the pectoralis muscle. Dissection was carried out to boundaries superiorly to the clavicle, medially to the sternal border and inferiorly as directed clinically. Please note that the palpable mass was in the mid inferomedial breast. It was somewhat superficial near the inferior medial skin margin and therefore dissection was carried out as feasible as possible to the dermis. Breast was then excised from the chest wall and the subpectoral fascial plane using electrocautery. Dissection was carried out to the axilla. The axillary fascia was incised. Landmarks were identified. Axillary vein was identified. Dissection
[2022-04-19 14:25] LABS: POC Glucose,Bedside 183 (70-110)
[2022-04-19 17:30] LABS: POC Glucose,Bedside 219 (70-110)
--- NOTE | 2022-04-19 21:30 | PC.NURSE ---
SPOKE WITH DR. PEREZ AT THIS TIME REGARDING PT BLOOD GLUCOSE READING OF 289. PT HAS NO ORDERED INSULIN COVERAGE. NEW ORDER TO BEGIN LOW DOSE SLIDING SCALE INSULIN COVERAGE. ALL ORDERS R/V
[2022-04-19 21:42] LABS: POC Glucose,Bedside 289 (70-110)
[2022-04-20 04:00] VITALS: BP 96/54; PULSE 77; RESP 18; TEMP 36.7; O2SAT 98
--- NOTE | 2022-04-20 04:05 | PC.NURSE ---
PATIENT HAS DONE VERY WELL THIS SHIFT. IMPLANTED PORT PATENT AND INFUSING WELL TO RIGHT CHEST. PT HAS REPORTED LITTLE TO NO PAIN AND HAS AMBULATED WELL WITH STANDBY ASSIST TO THE BEDSIDE COMMODE TO VOID. PT IS PASSING FLATUS AND BOWELS ARE ACTIVE X4. LUNGS CTAB. SURGICAL DRESSING TO LEFT CHEST REMAINS IN PLACE WITH NO NEW DRAINAGE NOTED FROM PREVIOUS ASSESSMENT. 2 DEYSI DRAINS TO LEFT BREAST AND AXILLA ARE DRAINING WELL WITH 110ML OF TOTAL SEROSANG OUTPUT AT THIS TIME IN THE SHIFT. PT TOLERATING BLAND DIET WELL. CALL LIGHT IN REACH.
[2022-04-20 06:10] LABS: POC Glucose,Bedside 167 (70-110)
[2022-04-20 08:00] VITALS: BP 145/64; PULSE 98; RESP 18; TEMP 36.6; O2SAT 100
--- NOTE | 2022-04-20 08:23 | HMH.GSPN ---
Subjective Narrative: Patient doing well. Complains of some soreness at surgical site. Progress Note: A&P Assessment and Plan for All Diagnoses:: Discharge planning. Drain care. Probable discharge with early outpatient follow-up Exam Vital signs and Labs for Last 24 Hours: Temp Pulse Resp BP Pulse Ox 98.1 F 77 18 96/54 L 98 04/20/22 04:00 04/20/22 04:00 04/20/22 04:00 04/20/22 04:00 04/20/22 04:00 Laboratory Results - last 24 hr 04/19/22 08:26: POC Glucose 171 H 04/19/22 14:18: POC Glucose 183 H 04/19/22 17:19: POC Glucose 219 H 04/19/22 21:28: POC Glucose 289 H 04/20/22 05:59: POC Glucose 167 H I & O for Last 24 hours: Intake & Output 04/17/22 04/18/22 04/19/22 04/20/22 11:59 11:59 11:59 11:59 Intake Total 940 / 940 Output Total 660 / 660 Balance 280 / 280 Weight 190 lb - Routine Chest/Breast/Axilla Exam Comments: Dressing intact. DEYSI drains with serosanguineous drainage. Some minor bruising.
--- NOTE | 2022-04-20 10:16 | SW/DCPLANNER ---
I spoke with this patient this morning regarding discharge plans. Patient stated that she resides at home with her and plans to go back home once medically stable for discharge. I discussed home health services with this patient for assistance with managing drain tube. Patient expressed that her will be able to do all care at home. I have asked nursing staff to educate for all care. This patient will discharge home later today.
[2022-04-20 11:24] LABS: POC Glucose,Bedside 140 (70-110)
--- NOTE | 2022-04-20 13:05 | HMH.DCSUM ---
General - General Admission date:: 04/19/22 Discharge date: 04/20/22 HPI HPI: Patient is a 76-year-old old female from [facility].? Her primary care provider is Jaiden Whittington.? She was referred by Dr. Mayte Wells for left breast cancer.? Patient had apparently had a left breast mass noted over a year ago.? She admits that she had neglected this for some time.? She had undergone imaging at [facility] on 08/18/2021 which revealed 4 cm mass in the inferior left breast with enlarged axillary lymph nodes.? She did undergo biopsy at [facility] on 08/24/2021 which revealed invasive ductal carcinoma, grade 3 which was ER negative, OK negative, HER2/susanne positive.? Lymph node was biopsied which was consistent with invasive metastatic carcinoma.? She had seen surgeon in [place], Dr. Ferdinand Sloan, who felt that this was relatively advanced breast cancer with positive lymph nodes.? This is clinically at least a T2 into stage III carcinoma.? Apparently she actually even had overlying skin changes on initial evaluation.? Port was placed.? She had been started on neoadjuvant therapy with weekly Taxol, Herceptin, Perjeta.? She has had some significant improvement clinically in the lesion and she was sent for surgical consultation for possible surgery as there is no longer any surgical availability in [facility]. During my initial consultation with the patient I had a very long discussion with her.? Given the lack of clear widespread metastatic disease I feel that it may be reasonable to pursue surgery.? I did discuss with her that she may actually even be a candidate for consideration of breast conservation with axillary lymphadenectomy with radiation.? Patient states that she would be unable to undergo radiation.? I also discussed with her the potential for referral for potential breast conservation surgery with radiation seed implants at [facility].? She states that she would be unable to even travel to for consultations or for limited surgical care.? She had come to the conclusion and resigned to the fact that she would undergo modified radical mastectomy.? Prior to proceeding with this had her undergo breast imaging with mammogram.? She has had a recent breast ultrasound. Her findings on follow-up diagnostic mammography revealed a ill-defined mass containing clip in the mid left breast measuring 5.6 x 2.6 x 3.7 cm. Of note, ultrasound performed on 12/17/2021 demonstrated mass measuring 4.0 x 1.0 x 3.3 with no axillary adenopathy. Hospital Course Hospital Course: Patient was admitted for surgery and taken to the operating room. She underwent left modified radical mastectomy. Please see operative dictation for complete details. She did have a couple of DEYSI drains placed, lateral drain of the axilla and medial drain in the inferior mastectomy bed. She was admitted overnight for recovery and convalescence. She was continued on perioperative intravenous antibiotics. She was started on her metformin. She had some supranormal blood sugars and was given low intensity sliding scale. She did well overnight. The following day she was complaining of mainly soreness in the surgical site. On examination there was some ecchymoses but no evidence of any flap necrosis. She had serosanguineous drainage from DEYSI drains. She did undergo care management consult for possible home health regarding wound care and drain management. She opted for drain care with family. Arrangements were made for discharge home. She is to follow-up in the office in 48 hours for incision evaluation. Objective Vital signs: Temp Pulse Resp BP Pulse Ox 97.9 F 98 H 18 145/64 H 100 04/20/22 08:00 04/20/22 08:00 04/20/22 08:00 04/20/22 08:00 04/20/22 08:00 Results Labs on day of discharge: Labs from last 24 hours 04/20/22 04/20/22 04/19/22 11:15 05:59 21:28 POC Glucose 140 H 167 H 289 H 04/19/22 04/19/22 17
--- NOTE | 2022-04-20 13:18 | PC.NURSE ---
1030: Order placed per Dr. Gramajo to instruct patient and on DEYSI drain care and stripping. Patient's at bedside for education. I instructed patient and how to empty the DEYSI drain, how to compress the DEYSI drain to ensure proper suction after emptying and how to properly strip the DEYSI drain. and patient visualized me emptying, stripping and compressing to close one of the DEYSI drains. Next, the returned demonstration on how to empty, strip and compress the DEYSI drain. We discussed proper hand hygiene before and after the procedure. and patient verbalized understanding. was provided some gloves to use at home. I also provided 2 graduated cylinder measuring cups so they could properly measure the output. and both unable to read the measuring bridges; I traced over the measuring bridges with a black permanent marker for better visualization. Patient and verbalized they could visualize those markings more easily. I instructed them to empty DEYSI drains at least twice a day (once in the morning and once in the evening). I provided a chart for them to document daily output from the drains. I Instructed them to take the chart to their follow up appointment so Dr. Gramajo can know how much they have been draining. and patient verbalized understanding. I provided 2 extra large tegaderms in the event the DEYSI dressing would come loose and instructed them to just reinforce dressing as Dr. Gramajo would remove the dressing upon followup. They verbalized understanding. Written instructions were also provided on DEYSI drain care and step by step DEYSI drain emptying instructions were provided. I informed them if they got home and had questions to call [facility] and ask for the Sediment Remediation Consultant and we could walk them through the process or answer any questions they may have. and patient verbalized they felt comfortable taking care of the drains and home and had no other questions. Informed Iris Dejesus RN that DEYSI drain teaching was completed and all supplies and instructions had been given to the patient.
--- NOTE | 2022-04-20 13:30 | PC.NURSE ---
D/C teaching provided to pt and pts . opportunity offered to ask questions. Pt denies any questions or concerns at this time.
--- NOTE | 2022-04-20 13:58 | PC.NURSE ---
Pt wheeled off the unit at this time per [facility] staff to a private vehicle
--- NOTE | 2022-04-21 08:10 | P.PN_ITS ---
[facility] Anesthesia Record Part II Discharge Time: 14:15 Destination: 2 Floor PACU nurse assessment reviewed?: Yes Patient Condition:: Good Anesthesia Complications:: None Swallowing reflex intact?: Yes Cyanosis?: No Blood Pressure: 134/66 Pulse Rate: 73 Temperature: 97.3 F Mental Status: Alert & Oriented Pain level:: 0 Nausea and/or vomitting:: None Intake, IV Amount: 0
[2022-04-21 08:11] VITALS: BP 134/66; PULSE 73; TEMP 36.3
== END 2022-04-20 13:58 | disposition home or self-care (01) | DRG 581 ==
LOC: OB 04-20 01:02 → 2ND 04-27 13:30
PROVIDERS: Admitting Provider Surgery; PCP Family Medicine; Visit Provider Surgery
PROC: 0HBU0ZX Excision of Left Breast, Open Approach, Diagnostic (ICD-10-PCS; CPT 19307; principal; 2022-04-19 09:45)
DX: E11.9 Type 2 diabetes mellitus without complications; I10 Essential (primary) hypertension; C50.212 Malignant neoplasm of upper-inner quadrant of left female breast; Z79.899 Other long term (current) drug therapy; Z79.84 Long term (current) use of oral hypoglycemic drugs; E78.5 Hyperlipidemia, unspecified; Z20.822 Contact with and (suspected) exposure to COVID-19
CPT/HCPCS: 19307; G0378; 36415; 80053; 82962; 85025; 88309; 96374; C9803; J0131; J2405; U0003; U0005

== ENCOUNTER 2022-05-13 08:34 | Outpatient (CLI) | payer MEDICARE, SELFPAY ==
[2022-05-13 08:43] VITALS: BMI 30.1
[2022-05-13 09:07] LABS: Chloride 103 mmol/L (98-107); Sodium 136 mmol/L (136-145)
[2022-05-13 09:08] LABS: Potassium 4.5 mmoL/L (3.5-5.1)
[2022-05-13 09:09] LABS: Basophils # 0.1 K/mm3 (0-0.2); Basophils % 0.7 % (0.1-2.0); Eosinophils # 0.1 K/mm3 (0.0-0.4); Hematocrit 32.5 % (37.0-47.0); Hemoglobin 10.6 g/dL (12.2-16.2); Lymphocytes % 31.1 % (10-50); Mean Corpuscular HGB Conc 32.6 g/dL (31.8-35.4); Mean Corpuscular Hemoglobin 30.3 pg (27.0-31.2); Mean Corpuscular Volume 93.1 fl (81-99); Mean Platelet Volume 8.2 fl (7.4-10.4); Monocytes # 0.3 K/mm3 (0.1-1.0); Monocytes % 5.2 % (1.7-9.3); Neutrophils # 3.9 K/mm3 (1.8-7.8); Neutrophils % 60.9 % (37.0-80.0); Platelet Count 223 K/mm3 (142-424); Red Blood Count 3.49 M/mm3 (4.20-5.40); Red Cell Distribution Width 13.2 % (11.5-17.5); White Blood Count 6.4 K/mm3 (4.8-10.8)
[2022-05-13 09:10] LABS: Alanine Aminotransferase 13 U/L (12-78); Albumin/Globulin Ratio 1.3 (1.1-1.8); Alkaline Phosphatase 78 U/L (38-126); Anion Gap 10.5 mEq/L (5-15); Aspartate Amino Transferase 22 U/L (14-36); Bilirubin,Total 0.2 mg/dl (0.2-1.3); Blood Urea Nitrogen 19 mg/dl (7-17); Carbon Dioxide 27 mmol/L (22.0-30.0); Creatinine Clearance Estimated 62 mL/min (50-200); Estimated Glomerular Filt Rate 54 ml/min (>60); GFR (African American) 65 ML/MIN (>60)
[2022-05-13 09:11] LABS: Glucose 152 mg/dl (74-100)
[2022-05-13 09:57] VITALS: BP 150/57; PULSE 62; RESP 18; TEMP 36.4; O2SAT 99
[2022-05-13 10:22] VITALS: BP 134/59; PULSE 68; RESP 18; O2SAT 99
[2022-05-13 10:52] VITALS: BP 141/56; PULSE 67; RESP 18; O2SAT 98
[2022-05-13 11:35] VITALS: BP 145/56; PULSE 67; RESP 18; O2SAT 98
== END 2022-05-13 11:35 | disposition home or self-care (01) ==
LOC: INF 08:35
PROVIDERS: PCP Pediatrics; Visit Provider Internal Medicine Medical Oncology
DX: Z51.11 Encounter for antineoplastic chemotherapy (principal); C50.912 Malignant neoplasm of unspecified site of left female breast
CPT/HCPCS: 80053; 85025; 96413; J1642; J9355

== ENCOUNTER 2022-05-27 11:00 | Outpatient (RCR) | payer MEDICARE, SELFPAY ==
--- NOTE | 2022-05-25 10:27 | HMH.PTOPWND ---
Rehab Outpt Wound Evaluation Rehab OP Wound Evaluation Start: 05/25/22 09:51 Freq: Status: Active Protocol: Document 05/25/22 10:18 IDALMIS (Rec: 05/25/22 10:27 PHORSANDRA [id number]) Electronically Signed By Ricardo Knowles, PT 05/25/22 10:18 Subjective/History History History Pt is 76 yowf who presents ~ 1 mo S/P L modified radical mastectomy with 13 LN removed due to L breast cancer (ER neg , VT neg, HER2 pos). She reports no c/o pain at rest, but does have intermittent pains in the L breast and axilla. She has undergone, but not radiation. She reports no difficulty with raising the L arm at this time, but does remain somewhat sensitive under the L arm. She has hx of DM-II, HTN, HL, CCY, and cardiac cath. Subjective Subjective Currently pain 0/10, at worst 3/10. Tendern to palpation along L breast incision and L axilla. No pitting edema noted at this time, but mild fibrotic edema noted to L upper arm, axilla, and breast. Lymphedema Eval Classification of Lymphedema Secondary Lymphedema Yes Post-Surgical Lymphedema Yes Stemmer's sign Stemmer's Sign no Stage of Lymphedema Lymphedema stages Stage II (Pitting edema, increased fibrosis w/ decreased pitting) Skin Changes Redness Yes Wounds Yes Discoloration of Skin Yes Other Changes Yes Pain Scale Pain Scale (0-10) 3 Radiation Therapy Has received radiation therapy no Chemo Therapy Has received chemo therapy yes Affected Extremities Areas Affected by Lymphedema/Edema Left Upper Extremity,Abdomen, Left Breast,Left Axilla Manual Lymphatic Drainage Treatment Area MLD Treatment Area Left Upper Extremity,Abdomen, Left Breast,Left Axilla,Sub Axiallary Region Wound Problems/Impairments Impairments Problems/Impairmments Palpation Tenderness,Impaired Strength,Impaired Endurance, Impaired Household Care, Impaired Recreational
== END 2022-05-27 11:05 | disposition home or self-care (01) ==
LOC: PT 11:00
PROVIDERS: PCP Pediatrics; Visit Provider Internal Medicine Medical Oncology
DX: I89.0 Lymphedema, not elsewhere classified (principal); C50.912 Malignant neoplasm of unspecified site of left female breast
CPT/HCPCS: 97140; 97162

== ENCOUNTER 2022-06-05 10:57 | Emergency (ER) | payer MEDICARE, SELFPAY ==
[2022-06-05 11:00] VITALS: BP 153/64; PULSE 80; RESP 16; TEMP 37.3; O2SAT 98; BMI 30.9
--- NOTE | 2022-06-05 11:03 | HMH.EDWNDL ---
Discharge Plan Disposition Patient Disposition: Home, Self-Care Condition: Good Chief Complaint: PAIN Prescriptions Prescriptions: No Action metformin 500 mg tablet 500 mg PO BIDWMEAL metoprolol tartrate 50 mg tablet 50 mg PO BID lisinopril 40 mg tablet 40 mg PO DAILY hydrochlorothiazide 25 mg tablet 25 mg PO DAILY Referrals Follow up/Referrals: Provider,Referral, [Referring] - See instructions Activity Restrictions/Add. Instructions Additional Instructions/Restrictions: follow up Dr Rodas in 2 days as scheduled Clinical Impressions Clinical Impression: Encounter for postoperative wound care Instructions Patient Instructions: How to Care for a Surgical Wound Discharge ED Provider: Micah Silvestre Wound/Laceration HPI General Chief Complaint: PAIN Stated Complaint: surgery 04/19, breast drainage Time Seen by Provider: 06/05/22 11:03 Mode of Arrival: Ambulatory Source of Information: Patient and Spouse Limitations: No Limitations History of Present Illness HPI narrative: left breast wound clear/yellow drainage, seen by gen surg few days ago for same, has appt in 2 days for reeval, h/o left mastectomy with non healing wound Onset (ago): week(s) Associated symptoms: other (general weakness) Treatments prior to arrival: bandage Related Data Home Medications Medication Instructions Recorded Confirmed hydrochlorothiazide 25 mg tablet 25 mg PO DAILY Fluid 08/31/21 06/01/22 lisinopril 40 mg tablet 40 mg PO DAILY Hypertension 08/31/21 06/01/22 metformin 500 mg tablet 500 mg PO BIDWMEAL Diabetes 08/31/21 06/01/22 metoprolol tartrate 50 mg tablet 50 mg PO BID Hypertension 08/31/21 06/01/22 Allergies Allergy/AdvReac Type Severity Reaction Status Date / Time niacin Allergy Intermediate Rash Verified 06/01/22 10:54 codeine Allergy Verified 06/01/22 10:54 [facility] Medical History Abnormal electrocardiography Breast cancer Dyspnea Encounter for pre-operative cardiovascular clearance Social History Smoking Status: Never smoker second hand exposure: No alcohol intake: never substance use type: denies use current occupational status: retired household members: spouse housing: house current occupational exposures/hazards: No caffeine: No ROS Obtained: Yes All systems reviewed & no additional complaints except as documented Physical Exam General General appearance: alert and in no apparent distress Head Head exam: atraumatic and normocephalic Eye Eye exam: Present normal appearance, PERRL and EOMI ENT ENT exam: Present normal exam, normal oropharynx and mucous membranes moist Neck Neck exam: Present normal inspection and trachea midline Chest Chest inspection: Present symmetric chest wall rise and other (left chest wound/post op incision with granulation/yellow tissue and erythema at edges, approx 3cm non healing wound in incision line with clear/yellow drainage mild, no bleed ); Absent tenderness Respiratory Respiratory exam: Present normal lung sounds bilaterally; Absent respiratory distress or wheezes Cardiovascular Cardiovascular exam: Absent normal rhythm, tachycardia or irregular rhythm Neurological Exam Neurological exam: Present alert, oriented X3 and CN II-XII intact Psychiatric Psychiatric exam: Present normal affect Skin Skin exam: Present warm, intact and normal color Medical Decision Making Raman Inquiry Pt receiving controlled substance: No Vital Signs: 06/05/22 11:00 06/05/22 14:36 Temperature 99.1 F 98 F Temperature Source Oral Oral Pulse Rate 87 Pulse Rate [Radial] 80 Respiratory Rate 16 16 Blood Pressure 137/74 Blood Pressure [Right Arm] 153/64 H Blood Pressure Mean [Right Arm] 93 Blood Pressure Position Sitting Blood Pressure Position [Right Arm] Sitting 02 Sat by Pulse Oximetry 98 Oxy
--- NOTE | 2022-06-05 11:16 | PC.NURSE ---
reviewed orders with ed md. no new orders noted
[2022-06-05 11:47] LABS: Basophils % 0.3 % (0.1-2.0); Eosinophils # 0.1 K/mm3 (0.0-0.4); Hemoglobin 9.9 g/dL (12.2-16.2); Lymphocytes # 1.4 K/mm3 (0.7-4.5); Lymphocytes % 14.1 % (10-50); Mean Corpuscular HGB Conc 32.1 g/dL (31.8-35.4); Mean Corpuscular Hemoglobin 28.9 pg (27.0-31.2); Mean Corpuscular Volume 90.1 fl (81-99); Mean Platelet Volume 8.4 fl (7.4-10.4); Monocytes # 0.5 K/mm3 (0.1-1.0); Neutrophils # 7.9 K/mm3 (1.8-7.8); Neutrophils % 79.7 % (37.0-80.0); Platelet Count 230 K/mm3 (142-424); Red Blood Count 3.44 M/mm3 (4.20-5.40); Red Cell Distribution Width 13.2 % (11.5-17.5); White Blood Count 9.9 K/mm3 (4.8-10.8)
[2022-06-05 11:57] LABS: Alanine Aminotransferase 14 U/L (12-78); Albumin Level 3.4 g/dl (3.5-5.0); Alkaline Phosphatase 89 U/L (38-126); Anion Gap 12.1 mEq/L (5-15); Aspartate Amino Transferase 20 U/L (14-36); Bilirubin,Total 0.3 mg/dl (0.2-1.3); Blood Urea Nitrogen 29 mg/dl (7-17); Calcium 9.8 mg/dl (8.4-10.2); Carbon Dioxide 25 mmol/L (22.0-30.0); Chloride 97 mmol/L (98-107); Creatinine Clearance Estimated 47 mL/min (50-200); Estimated Glomerular Filt Rate 40 ml/min (>60); GFR (African American) 48 ML/MIN (>60); Globulin 3.4 g/dL (1.3-3.2); Glucose 167 mg/dl (74-100); Potassium 4.1 mmoL/L (3.5-5.1); Sodium 130 mmol/L (136-145); Total Protein,Serum 6.8 g/dl (6.3-8.2)
[2022-06-05 14:36] VITALS: BP 137/74; PULSE 87; RESP 16; TEMP 36.6; O2SAT 98
== END 2022-06-05 14:38 | disposition home or self-care (01) ==
PROVIDERS: Emergency Provider Emergency Medicine; PCP Family Medicine
DX: G89.18 Other acute postprocedural pain (principal); N64.4 Mastodynia; Z90.10 Acquired absence of unspecified breast and nipple; Z85.3 Personal history of malignant neoplasm of breast; Z79.84 Long term (current) use of oral hypoglycemic drugs; Z79.899 Other long term (current) drug therapy; Z88.6 Allergy status to analgesic agent; I10 Essential (primary) hypertension; E11.9 Type 2 diabetes mellitus without complications
CPT/HCPCS: 80053; 85025; 96365; 96375; 99284; J1642; J2405

== ENCOUNTER 2022-06-08 08:34 | Outpatient (CLI) | payer MEDICARE, SELFPAY | END 2022-06-08 09:30 | disposition home or self-care (01) | LOC: INF 08:35 | PROVIDERS: PCP Pediatrics; Visit Provider Surgery | DX: C50.912 Malignant neoplasm of unspecified site of left female breast (principal); Z48.01 Encounter for change or removal of surgical wound dressing | CPT/HCPCS: G0463 ==

== ENCOUNTER 2022-06-09 09:29 | Outpatient (CLI) | payer MEDICARE, SELFPAY ==
--- NOTE | 2022-06-09 10:53 | PC.NURSE ---
UPON ARRIVAL, DRESSING WAS SATURATED WITH MAINLY CLEAR TO YELLOWISH FLUID WITH SMALL AMOUNT OF BLOOD NOTED ON PACKING. IRRIGATED WOUND WITH NS AND DRIED OUT WITH DRY 4X4 GAUZE. PACKED WITH PART OF A DRY KERLEX, COVERED WITH 2 DRY 4X4'S FOLDED IN HALF FOLLOWED WITH 4 ABD PADS, AND TAPED INTO PLACE.
== END 2022-06-09 10:05 | disposition home or self-care (01) ==
LOC: INF 09:30
PROVIDERS: PCP Pediatrics; Visit Provider Surgery
DX: C50.912 Malignant neoplasm of unspecified site of left female breast (principal); Z48.01 Encounter for change or removal of surgical wound dressing
CPT/HCPCS: G0463

== ENCOUNTER 2022-06-10 09:12 | Day surgery (SDC) | payer MEDICARE, SELFPAY ==
[2022-06-10] VITALS (9 sets, daily range): BP systolic 112–155; BP diastolic 52–89; PULSE 74–95; RESP 15–16; TEMP 36.3–36.8; O2SAT 98–100; BMI 29.9
--- NOTE | 2022-06-10 10:04 | EXP.GEN.HP ---
HPI HPI HPI: Patient is a 76-year-old old female from [facility].? Her primary care provider is Jaiden Whittington.? She was originally referred by Dr. Mayte Wells for left breast cancer.? Patient had apparently had a left breast mass noted well over a year ago.? She admits that she had neglected this for some time.? She had undergone imaging at [facility] on 08/18/2021 which revealed 4 cm mass in the inferior left breast with enlarged axillary lymph nodes.? She did undergo biopsy at [facility] on 08/24/2021 which revealed invasive ductal carcinoma, grade 3 which was ER negative, GA negative, HER2/susanne positive.? Lymph node was biopsied which was consistent with invasive metastatic carcinoma.? She had seen a surgeon in [place], Dr. Ferdinand Sloan, who felt that this was relatively advanced breast cancer with positive lymph nodes.? This is clinically at least a T2 into stage III carcinoma.? Apparently she actually even had overlying skin changes on initial evaluation.? Port was placed.? She had been started on neoadjuvant therapy with weekly Taxol, Herceptin, Perjeta.? She has had some significant improvement clinically in the lesion and she was sent for surgical consultation for possible surgery as there is no longer any surgical availability in [facility]. During my initial consultation I had a very long discussion with the patient. Given the lack of widespread metastatic disease I had felt that it would be reasonable to pursue surgery. I did discuss with her that she may even be a candidate for breast conservation with axillary lymphadenectomy with radiation given the clinical improvement with neoadjuvant therapy. However, the patient stated that she would be unable to travel for radiation. Option of referral for possible radiation seed implant was discussed and she stated that she would be unable to travel to [place] for even consultation. Ultimately plan was made to proceed with modified radical mastectomy. Patient underwent modified radical mastectomy on 04/19/2022. She has been followed in the office regularly. She was noted to have some minor superficial necrosis of the tissue in the inferior skin flap. Her last drain, axillary drain, was removed on 05/04/2022 due to minuscule output. She was seen back in the office for routine follow-up and had a moderate nontense seroma which was aspirated on 06/01/2022. Interestingly, the patient had developed focal dehiscence at the site of necrosis and presented to the emergency department on 06/05/2022. She was found managed as an outpatient. She was seen in the office on 06/07/2022 and found to have focal dehiscence at the site of tissue necrosis. Dressing changes were initiated with dry dressing daily. She however has had ongoing serous drainage. [facility] Medical History Abnormal electrocardiography Breast cancer Dyspnea Encounter for pre-operative cardiovascular clearance Social History Smoking Status: Former smoker second hand exposure: No alcohol intake: never substance use type: denies use current occupational status: retired household members: spouse housing: house marital status: education level: high school current occupational exposures/hazards: No caffeine: No Meds Home Medications and Allergies Home Medications Medication Instructions Recorded Confirmed Type hydrochlorothiazide 25 mg tablet 25 mg PO DAILY Fluid 08/31/21 06/08/22 History lisinopril 40 mg tablet 40 mg PO DAILY Hypertension 08/31/21 06/08/22 History metformin 500 mg tablet 500 mg PO BIDWMEAL Diabetes 08/31/21 06/08/22 History metoprolol tartrate 50 mg tablet 50 mg PO BID Hypertension 08/31/21 06/08/22 History New Prescriptions to Start Prescriptions: Allergies Allergy/AdvReac Type Severity Reaction Status Date / Time niacin Allergy I
[2022-06-10 10:46] LABS: POC Glucose,Bedside 155 (70-110)
[2022-06-10 10:51] LABS: Coronavirus 19, PCR Not Detected (NotDetected); Influenza A, PCR Not Detected (NotDetected); Influenza B, PCR Not Detected (NotDetected)
--- NOTE | 2022-06-10 11:33 | EXP.OP.NOTE ---
Date of procedure: 06/10/22 Pre-op Diagnosis:: Wound healing problem Post-op Diagnosis:: Same Procedure performed:: Debridement of skin and subcutaneous tissue using electrocautery Surgeon:: Raj Gramajo MD UNDER GROUND MINER:: Ranulfo Vaughan Anesthesia: LMA Estimated blood loss (mL): 2 Operative findings:: She has some focal necrosis of skin and subcutaneous tissue. Operative note:: Patient was taken to the operating room. She was given preoperative intravenous antibiotics. In the operating room she was placed in a supine position. Anesthesia was induced via LMA. The left chest was prepped and draped in the standard surgical fashion. The area of tissue necrosis was debrided using electrocautery to healthy skin. There was good hemostasis. This was done using electrocautery. The overall size of the wound after debridement measured 5.3 cm x 2.0 cm in width and 1 cm in depth. Due to the fact that this was prior mastectomy she did have 6 to 7 cm undermining. The wound was loosely packed with a dry gauze and covered with clean dry sterile dressing. Plan will be to initiate negative pressure wound therapy dressing tomorrow within the open portion of the wound without placement in the undermining. Condition: stable Disposition: PACU Complications:: None immediately apparent
--- NOTE | 2022-06-10 11:39 | EXP.ANES.CKL ---
[facility] Medical History (Updated 06/10/22 @ 10:59 by Juliann Varela RN) Abnormal electrocardiography Breast cancer Dyspnea Encounter for pre-operative cardiovascular clearance Lipoma of skin and subcutaneous tissue (excluding face) Port-A-Cath in place Surgical History History of cholecystectomy History of dilation and curettage History of hysterectomy History of left mastectomy Social History Smoking Status: Former smoker second hand exposure: No alcohol intake: never substance use type: denies use current occupational status: retired Travel in the last 8 weeks: None household members: spouse housing: house marital status: education level: high school current occupational exposures/hazards: No caffeine: No [facility] Anesthesia Checklist Patient Identification Patient Identification: Arm Band Structural Data Admitted From: Home Planned Operative Procedure/s: Debridement Left Breast Tissue Consent for Planned Operative Procedure(s) Verified: Yes Verified Documents: Surgical Consent and History and Physical NPO Status Verified Time NPO: 00:00 Additional verifications Anesthesia Reactions: No Hx Blood Transfusions: No Blood Transfusion Reaction: No Airway Assessment C-Spine Mobility Assessed: Yes (mp2) TMJ Mobility Assessed: Yes Dentition: Edentulous Neurological Assessment Level of Consciousness: Awake and Alert Anesthesia Plan Anesthesia Risk discussed: Yes Anesthesia Plan: Verified ASA Class: III Anesthesia Type: General
--- NOTE | 2022-06-10 11:40 | EXP.ANES.I ---
[facility] Anesthesia Record Part I Anesthesia Record I Intake, IV Amount: 100 Estimated blood loss (mL): 10 Urine output (mL): 0 Blood Pressure: 130/69 SaO2: 99 Pulse Rate: 77 Respiratory Rate: 16 Temperature: 98.2 F Patient is:: Awake and Stable Stable to PACU at:: 11:35
[2022-06-10 11:52] LABS: POC Glucose,Bedside 140 (70-110)
--- NOTE | 2022-06-10 11:58 | SUR.PHASEI ---
LATE ENTRY 1145 BS obtained with results of Jovanna. RRené Vaughan CRNA notified. No new orders given at this time. Pt may be discharged as appropriate.
--- NOTE | 2022-06-10 12:00 | PC.NURSE ---
1143 Hany Vaughan CRNA notified of heart rate irregularity. Hany Vaughan CRNA reviewed monitor and is okay with pt being discharged as appropriate.
--- NOTE | 2022-06-10 12:12 | SUR.PHASEI ---
LATE ENTRY 1202 called and gave detailed report to Pavel Fritz RN 1205 transported via stretcher to post op. vital signs stable. denies pain. left in stable condition with Pavel Fritz RN at bedside.
--- NOTE | 2022-06-10 13:25 | CARE MANAGER ---
Received order for wound vac for this patient, arranged wound vac with [facility] who will overnight vac to the patient to bring in on 06.11.22 for application to outpatient. Wound care will begin on 06.14.22 with (#25) due to the holiday and an appointment on 06.16.22 with wound care (therapy.)
--- NOTE | 2022-06-11 08:29 | EXP.ANES.II ---
[facility] Anesthesia Record Part II Anesthesia Record Part II Discharge Time: 12:36 Destination: Outpatient Procedures PACU nurse assessment reviewed?: Yes Patient Condition:: Good Anesthesia Complications:: None Swallowing reflex intact?: Yes Cyanosis?: No Blood Pressure: 133/61 Pulse Rate: 74 Temperature: 97.1 F Mental Status: Alert & Oriented Pain level:: 0 Nausea and/or vomitting:: None Intake, IV Amount: 0
[2022-06-11 08:32] VITALS: BP 133/61; PULSE 74; TEMP 36.2
== END 2022-06-10 10:30 | disposition home or self-care (01) ==
LOC: INF 12:26 → SDC 06-24 16:31
PROVIDERS: PCP Pediatrics; Visit Provider Surgery
DX: L76.82 Other postprocedural complications of skin and subcutaneous tissue (principal); T81.31XA Disruption of external operation (surgical) wound, not elsewhere classified, initial encounter; E11.9 Type 2 diabetes mellitus without complications; Z48.89 Encounter for other specified surgical aftercare; Z85.3 Personal history of malignant neoplasm of breast; Z79.899 Other long term (current) drug therapy
CPT/HCPCS: 11042; 82962; 88304; 96374; C9803; J1642; J2405; U0003; U0005

== ENCOUNTER 2022-06-11 10:40 | Outpatient (CLI) | payer MEDICARE, SELFPAY | END 2022-06-11 11:42 | disposition home or self-care (01) | LOC: INF 10:41 | PROVIDERS: PCP Pediatrics; Visit Provider Surgery | DX: C50.912 Malignant neoplasm of unspecified site of left female breast (principal); Z48.01 Encounter for change or removal of surgical wound dressing | CPT/HCPCS: G0463 ==

== ENCOUNTER 2022-06-14 09:24 | Outpatient (CLI) | payer MEDICARE, SELFPAY ==
[2022-06-14 10:35] VITALS: BP 162/64; PULSE 96; RESP 18; TEMP 37; O2SAT 99
== END 2022-06-14 10:38 | disposition home or self-care (01) ==
PROVIDERS: PCP Pediatrics; Visit Provider Surgery
DX: C50.912 Malignant neoplasm of unspecified site of left female breast (principal); Z48.01 Encounter for change or removal of surgical wound dressing
CPT/HCPCS: G0463

== ENCOUNTER 2022-06-18 09:00 | Outpatient (RCR) | payer MEDICARE, SELFPAY ==
--- NOTE | 2022-06-16 14:35 | HMH.PTOPWND ---
Rehab Outpt Wound Evaluation Rehab OP Wound Evaluation Start: 06/16/22 13:41 Freq: Status: Active Protocol: Document 06/16/22 14:26 IDALMIS (Rec: 06/16/22 14:35 PHORNE [id number]) E-signed By Ricardo Knowles PT Subjective/History History History Pt is 76 yowf who presents with L side chest wound after I&D performed 06/10/22. She originally had L side mastectomy performed 04/18/22 due to breast cancer and had poor incision healing with underlying seroma formation. She is now using VAC dressing for wound healing post surgery . Wound appears healthy this date with narrow tunneling noted to media land lateral sides. She has hx of lymphedema after her mastectomy and DM-II. Subjective Subjective Currently she reports only mild pain, but has significant tenderness in the rikki-wound skin 3/4. continued lymphedema of the L UE and axilla noted. Wound Eval Subjective History Subjective Tunnelling noted at 10 o'clock with depth of 5.5 cm and 3 o' clock with depth of 10.8 cm. Largest tunnel noted below. Wound Left Chest Wound Type Incision Is This a Chronic Wound No Wound Length (cm) 2.2 Wound Width (cm) 5.0 Wound Depth (cm) 0.5 Wound Bed Appearance Beefy Red,Yellow Percentage Granulated (%) 95 Percentage of Slough (%) 5 Wound Margins Description Well Defined Tunneling Position 3 o'clock Tunneling Depth (cm) 10.8 Surrounding Tissue Appearance Martin'S Additions Drainage Description Sanguineous Drainage Amount Moderate Wound Topical Solution/Irrigant Saline Irrigant Packing Type Woundvac Sponge Primary Dressing Film Dressing Wound Debridement Method Gauze Wound Debridement Amount of Tissue None Removed Dressing Change Patient Tolerance Tolerated Well Wound Problems/Impairments Impairments Problems/Impairmments Palpation Tenderness,Impaired Shower/Bathing,Impaired Household Care,Impaired
== END 2022-06-18 09:05 | disposition home or self-care (01) ==
LOC: PT 09:00
PROVIDERS: PCP Pediatrics; Visit Provider Surgery
DX: C50.912 Malignant neoplasm of unspecified site of left female breast (principal); Z48.01 Encounter for change or removal of surgical wound dressing
CPT/HCPCS: 97140; 97163; 97605

== ENCOUNTER 2022-07-15 09:59 | Outpatient (CLI) | payer MEDICARE, SELFPAY ==
[2022-07-15 10:10] VITALS: BMI 31.6
[2022-07-15 10:26] LABS: Basophils # 0.1 K/mm3 (0-0.2); Basophils % 0.6 % (0.1-2.0); Eosinophils # 0.1 K/mm3 (0.0-0.4); Eosinophils % 1.4 % (0.1-12.0); Hematocrit 34.7 % (37.0-47.0); Hemoglobin 11.4 g/dL (12.2-16.2); Lymphocytes % 22.9 % (10-50); Mean Corpuscular HGB Conc 32.9 g/dL (31.8-35.4); Mean Corpuscular Hemoglobin 28.6 pg (27.0-31.2); Mean Platelet Volume 8.2 fl (7.4-10.4); Monocytes # 0.4 K/mm3 (0.1-1.0); Monocytes % 4.4 % (1.7-9.3); Neutrophils # 6.1 K/mm3 (1.8-7.8); Neutrophils % 70.7 % (37.0-80.0); Platelet Count 215 K/mm3 (142-424); Red Blood Count 3.98 M/mm3 (4.20-5.40); Red Cell Distribution Width 14.7 % (11.5-17.5); White Blood Count 8.6 K/mm3 (4.8-10.8)
[2022-07-15 10:32] LABS: Chloride 99 mmol/L (98-107); Potassium 4.1 mmoL/L (3.5-5.1); Sodium 139 mmol/L (136-145)
[2022-07-15 10:35] LABS: Alanine Aminotransferase 12 U/L (12-78); Albumin Level 4.1 g/dl (3.5-5.0); Albumin/Globulin Ratio 1.4 (1.1-1.8); Alkaline Phosphatase 76 U/L (38-126); Anion Gap 15.1 mEq/L (5-15); Aspartate Amino Transferase 20 U/L (14-36); Bilirubin,Total 0.5 mg/dl (0.2-1.3); Blood Urea Nitrogen 18 mg/dl (7-17); Carbon Dioxide 29 mmol/L (22.0-30.0); Creatinine Clearance Estimated 56 mL/min (50-200); Estimated Glomerular Filt Rate 48 ml/min (>60); GFR (African American) 58 ML/MIN (>60); Globulin 2.9 g/dL (1.3-3.2); Glucose 154 mg/dl (74-100)
[2022-07-15 10:36] LABS: Calcium 9.3 mg/dl (8.4-10.2)
[2022-07-15 11:34] VITALS: BP 129/54; PULSE 74; RESP 18; TEMP 36.3; O2SAT 99
[2022-07-15 12:03] VITALS: BP 134/60; PULSE 72; RESP 18; O2SAT 99
[2022-07-15 12:33] VITALS: BP 126/65; PULSE 75; RESP 18; O2SAT 99
[2022-07-15 13:15] VITALS: BP 130/59; PULSE 78; RESP 18; O2SAT 99
== END 2022-07-15 13:15 | disposition home or self-care (01) ==
LOC: INF 10:04
PROVIDERS: PCP Internal Medicine; Visit Provider Internal Medicine Medical Oncology
DX: Z51.11 Encounter for antineoplastic chemotherapy (principal); C50.912 Malignant neoplasm of unspecified site of left female breast
CPT/HCPCS: 80053; 85025; 96413; J1642; J9355

== ENCOUNTER 2022-08-05 08:56 | Outpatient (CLI) | payer MEDICARE, SELFPAY ==
[2022-08-05 09:18] VITALS: BMI 29.0
[2022-08-05 09:37] LABS: Basophils % 0.6 % (0.1-2.0); Eosinophils # 0.1 K/mm3 (0.0-0.4); Hematocrit 35.4 % (37.0-47.0); Hemoglobin 11.2 g/dL (12.2-16.2); Lymphocytes # 1.8 K/mm3 (0.7-4.5); Lymphocytes % 25.7 % (10-50); Mean Corpuscular HGB Conc 31.6 g/dL (31.8-35.4); Mean Corpuscular Hemoglobin 28.2 pg (27.0-31.2); Mean Corpuscular Volume 89.3 fl (81-99); Mean Platelet Volume 8.3 fl (7.4-10.4); Monocytes # 0.3 K/mm3 (0.1-1.0); Monocytes % 4.5 % (1.7-9.3); Neutrophils # 4.7 K/mm3 (1.8-7.8); Neutrophils % 68.2 % (37.0-80.0); Platelet Count 239 K/mm3 (142-424); Red Blood Count 3.96 M/mm3 (4.20-5.40); Red Cell Distribution Width 14.7 % (11.5-17.5); White Blood Count 6.8 K/mm3 (4.8-10.8)
[2022-08-05 09:43] LABS: Chloride 99 mmol/L (98-107); Potassium 3.9 mmoL/L (3.5-5.1); Sodium 139 mmol/L (136-145)
[2022-08-05 09:46] LABS: Alanine Aminotransferase 14 U/L (12-78); Albumin/Globulin Ratio 1.3 (1.1-1.8); Alkaline Phosphatase 78 U/L (38-126); Anion Gap 14.9 mEq/L (5-15); Aspartate Amino Transferase 20 U/L (14-36); Bilirubin,Total 0.3 mg/dl (0.2-1.3); Blood Urea Nitrogen 19 mg/dl (7-17); Calcium 9.4 mg/dl (8.4-10.2); Carbon Dioxide 29 mmol/L (22.0-30.0); Creatinine Clearance Estimated 52 mL/min (50-200); Estimated Glomerular Filt Rate 48 ml/min (>60); GFR (African American) 58 ML/MIN (>60); Glucose 159 mg/dl (74-100)
[2022-08-05 10:30] VITALS: BP 156/55; PULSE 63; RESP 18; TEMP 36.3; O2SAT 100
[2022-08-05 10:45] VITALS: BP 156/50; PULSE 64; RESP 18; O2SAT 100
[2022-08-05 11:00] VITALS: BP 140/40; PULSE 64; RESP 18; TEMP 36.3; O2SAT 100
[2022-08-05 11:15] VITALS: BP 135/49; PULSE 61; RESP 18; O2SAT 100
[2022-08-05 11:30] VITALS: BP 148/49; PULSE 65; RESP 18; TEMP 36.3; O2SAT 100
[2022-08-05 11:45] VITALS: BP 148/49; PULSE 65; RESP 18; O2SAT 100
== END 2022-08-05 11:46 | disposition home or self-care (01) ==
LOC: INF 08:59
PROVIDERS: PCP Pediatrics; Visit Provider Internal Medicine Medical Oncology
DX: Z51.11 Encounter for antineoplastic chemotherapy; C50.912 Malignant neoplasm of unspecified site of left female breast
CPT/HCPCS: 80053; 85025; 96413; J1642; J9355

== ENCOUNTER 2022-08-27 08:40 | Outpatient (CLI) | payer MEDICARE, SELFPAY ==
[2022-08-27 08:43] VITALS: BMI 28.3
[2022-08-27 09:18] LABS: Alanine Aminotransferase 14 U/L (12-78); Albumin Level 4.1 g/dl (3.5-5.0); Albumin/Globulin Ratio 1.4 (1.1-1.8); Alkaline Phosphatase 75 U/L (38-126); Anion Gap 16.1 mEq/L (5-15); Aspartate Amino Transferase 19 U/L (14-36); Bilirubin,Total 0.3 mg/dl (0.2-1.3); Blood Urea Nitrogen 23 mg/dl (7-17); Calcium 9.9 mg/dl (8.4-10.2); Carbon Dioxide 29 mmol/L (22.0-30.0); Chloride 100 mmol/L (98-107); Creatinine Clearance Estimated 46 mL/min (50-200); Estimated Glomerular Filt Rate 44 ml/min (>60); GFR (African American) 53 ML/MIN (>60); Globulin 2.9 g/dL (1.3-3.2); Glucose 158 mg/dl (74-100); Potassium 4.1 mmoL/L (3.5-5.1); Sodium 141 mmol/L (136-145)
[2022-08-27 09:44] LABS: Basophils # 0.1 K/mm3 (0-0.2); Basophils % 0.9 % (0.1-2.0); Eosinophils # 0.1 K/mm3 (0.0-0.4); Hemoglobin 11.6 g/dL (12.2-16.2); Lymphocytes # 1.5 K/mm3 (0.7-4.5); Lymphocytes % 25.5 % (10-50); Mean Corpuscular HGB Conc 33.1 g/dL (31.8-35.4); Mean Corpuscular Hemoglobin 28.8 pg (27.0-31.2); Mean Platelet Volume 8.2 fl (7.4-10.4); Monocytes # 0.3 K/mm3 (0.1-1.0); Monocytes % 5.3 % (1.7-9.3); Neutrophils # 3.8 K/mm3 (1.8-7.8); Neutrophils % 66.3 % (37.0-80.0); Platelet Count 222 K/mm3 (142-424); Red Blood Count 4.02 M/mm3 (4.20-5.40); White Blood Count 5.7 K/mm3 (4.8-10.8)
[2022-08-27 10:01] VITALS: BP 150/68; PULSE 62; RESP 18; TEMP 36.6; O2SAT 99
[2022-08-27 10:45] VITALS: BP 154/62; PULSE 56; RESP 18; O2SAT 99
[2022-08-27 11:15] VITALS: BP 151/71; PULSE 61; RESP 18; O2SAT 99
[2022-08-27 12:00] VITALS: BP 153/59; PULSE 62; RESP 18; O2SAT 98
== END 2022-08-27 12:00 | disposition home or self-care (01) ==
LOC: INF 08:40
PROVIDERS: PCP Pediatrics; Visit Provider Internal Medicine Medical Oncology
DX: Z51.11 Encounter for antineoplastic chemotherapy (principal); C50.912 Malignant neoplasm of unspecified site of left female breast
CPT/HCPCS: 80053; 85025; 96413; J1642; J9355

== ENCOUNTER 2022-09-16 08:59 | Outpatient (CLI) | payer MEDICARE, SELFPAY ==
[2022-09-16 09:10] VITALS: BMI 29.9
[2022-09-16 09:33] LABS: Basophils % 0.7 % (0.1-2.0); Eosinophils # 0.1 K/mm3 (0.0-0.4); Eosinophils % 2.2 % (0.1-12.0); Hematocrit 33.2 % (37.0-47.0); Hemoglobin 10.9 g/dL (12.2-16.2); Mean Corpuscular HGB Conc 32.8 g/dL (31.8-35.4); Mean Corpuscular Hemoglobin 28.5 pg (27.0-31.2); Mean Corpuscular Volume 86.8 fl (81-99); Mean Platelet Volume 8.3 fl (7.4-10.4); Monocytes # 0.4 K/mm3 (0.1-1.0); Monocytes % 5.7 % (1.7-9.3); Neutrophils # 3.6 K/mm3 (1.8-7.8); Neutrophils % 59.4 % (37.0-80.0); Platelet Count 218 K/mm3 (142-424); Red Blood Count 3.82 M/mm3 (4.20-5.40); Red Cell Distribution Width 14.7 % (11.5-17.5); White Blood Count 6.1 K/mm3 (4.8-10.8)
[2022-09-16 09:38] LABS: Chloride 103 mmol/L (98-107); Potassium 4.2 mmoL/L (3.5-5.1); Sodium 138 mmol/L (136-145)
[2022-09-16 09:40] LABS: Alanine Aminotransferase 11 U/L (12-78); Aspartate Amino Transferase 18 U/L (14-36); Blood Urea Nitrogen 24 mg/dl (7-17); Creatinine Clearance Estimated 42 mL/min (50-200); Estimated Glomerular Filt Rate 36 ml/min (>60); GFR (African American) 44 ML/MIN (>60)
[2022-09-16 09:41] LABS: Albumin Level 3.8 g/dl (3.5-5.0); Albumin/Globulin Ratio 1.2 (1.1-1.8); Alkaline Phosphatase 77 U/L (38-126); Anion Gap 9.2 mEq/L (5-15); Bilirubin,Total 0.2 mg/dl (0.2-1.3); Calcium 9.8 mg/dl (8.4-10.2); Carbon Dioxide 30 mmol/L (22.0-30.0); Globulin 3.1 g/dL (1.3-3.2); Glucose 121 mg/dl (74-100); Total Protein,Serum 6.9 g/dl (6.3-8.2)
[2022-09-16 10:00] VITALS: BP 147/67; PULSE 57; RESP 18; TEMP 36.6; O2SAT 99
[2022-09-16 11:08] VITALS: BP 157/67; PULSE 59; RESP 18
[2022-09-16 11:35] VITALS: BP 130/69; PULSE 57; RESP 18
[2022-09-16 12:20] VITALS: BP 139/60; PULSE 57; RESP 18
== END 2022-09-16 12:20 | disposition home or self-care (01) ==
PROVIDERS: PCP Pediatrics; Visit Provider Internal Medicine Medical Oncology
DX: Z51.11 Encounter for antineoplastic chemotherapy (principal); C50.912 Malignant neoplasm of unspecified site of left female breast
CPT/HCPCS: 80053; 85025; 96360; 96415; 96417; J1642; J9355

== ENCOUNTER 2022-10-07 09:56 | Outpatient (CLI) | payer MEDICARE, SELFPAY ==
[2022-10-07 10:04] VITALS: BMI 28.1
[2022-10-07 10:57] LABS: Basophils # 0.1 K/mm3 (0-0.2); Basophils % 0.7 % (0.1-2.0); Eosinophils # 0.2 K/mm3 (0.0-0.4); Eosinophils % 2.8 % (0.1-12.0); Hematocrit 35.8 % (37.0-47.0); Hemoglobin 11.6 g/dL (12.2-16.2); Lymphocytes # 2.4 K/mm3 (0.7-4.5); Lymphocytes % 32.6 % (10-50); Mean Corpuscular HGB Conc 32.5 g/dL (31.8-35.4); Mean Corpuscular Volume 89.4 fl (81-99); Mean Platelet Volume 8.3 fl (7.4-10.4); Monocytes # 0.4 K/mm3 (0.1-1.0); Neutrophils # 4.4 K/mm3 (1.8-7.8); Neutrophils % 58.7 % (37.0-80.0); Platelet Count 193 K/mm3 (142-424); Red Blood Count 4.01 M/mm3 (4.20-5.40); Red Cell Distribution Width 14.3 % (11.5-17.5); White Blood Count 7.4 K/mm3 (4.8-10.8)
[2022-10-07 11:07] LABS: Chloride 100 mmol/L (98-107); Potassium 4.7 mmoL/L (3.5-5.1); Sodium 135 mmol/L (136-145)
[2022-10-07 11:10] LABS: Alanine Aminotransferase 18 U/L (12-78); Albumin/Globulin Ratio 1.3 (1.1-1.8); Alkaline Phosphatase 69 U/L (38-126); Anion Gap 12.7 mEq/L (5-15); Aspartate Amino Transferase 26 U/L (14-36); Bilirubin,Total 0.4 mg/dl (0.2-1.3); Blood Urea Nitrogen 27 mg/dl (7-17); Calcium 9.7 mg/dl (8.4-10.2); Carbon Dioxide 27 mmol/L (22.0-30.0); Creatinine Clearance Estimated 48 mL/min (50-200); Estimated Glomerular Filt Rate 44 ml/min (>60); GFR (African American) 53 ML/MIN (>60); Globulin 3.1 g/dL (1.3-3.2); Glucose 137 mg/dl (74-100); Total Protein,Serum 7.1 g/dl (6.3-8.2)
[2022-10-07 13:05] VITALS: BP 135/60; PULSE 60; RESP 18; TEMP 36; O2SAT 100
[2022-10-07 13:20] VITALS: BP 132/58; PULSE 62; RESP 18; O2SAT 100
[2022-10-07 13:35] VITALS: BP 137/61; PULSE 65; RESP 18; O2SAT 100
[2022-10-07 13:50] VITALS: BP 151/65; PULSE 65; RESP 18; TEMP 36; O2SAT 100
[2022-10-07 14:10] VITALS: BP 145/63; PULSE 63; RESP 18; O2SAT 100
[2022-10-07 14:27] VITALS: BP 161/63; PULSE 61; RESP 18; O2SAT 100
== END 2022-10-07 14:28 | disposition home or self-care (01) ==
LOC: INF 09:57
PROVIDERS: PCP Pediatrics; Visit Provider Internal Medicine Medical Oncology
DX: Z51.11 Encounter for antineoplastic chemotherapy (principal); C50.912 Malignant neoplasm of unspecified site of left female breast; Z45.2 Encounter for adjustment and management of vascular access device
CPT/HCPCS: 36415; 80053; 85025; 96375; 96413; J1642; J9355

== ENCOUNTER 2022-10-28 09:32 | Outpatient (CLI) | payer MEDICARE, SELFPAY ==
[2022-10-28 09:38] VITALS: BMI 29.8
[2022-10-28 10:06] LABS: Basophils # 0.1 K/mm3 (0-0.2); Basophils % 0.8 % (0.1-2.0); Eosinophils # 0.2 K/mm3 (0.0-0.4); Eosinophils % 2.5 % (0.1-12.0); Hematocrit 34.7 % (37.0-47.0); Hemoglobin 11.4 g/dL (12.2-16.2); Lymphocytes # 2.3 K/mm3 (0.7-4.5); Mean Corpuscular Hemoglobin 28.2 pg (27.0-31.2); Mean Corpuscular Volume 85.6 fl (81-99); Mean Platelet Volume 7.7 fl (7.4-10.4); Monocytes # 0.5 K/mm3 (0.1-1.0); Monocytes % 5.4 % (1.7-9.3); Neutrophils # 5.2 K/mm3 (1.8-7.8); Neutrophils % 63.2 % (37.0-80.0); Platelet Count 219 K/mm3 (142-424); Red Blood Count 4.06 M/mm3 (4.20-5.40); Red Cell Distribution Width 13.8 % (11.5-17.5); White Blood Count 8.3 K/mm3 (4.8-10.8)
[2022-10-28 10:10] LABS: Chloride 92 mmol/L (98-107); Potassium 4.5 mmoL/L (3.5-5.1); Sodium 128 mmol/L (136-145)
[2022-10-28 10:13] LABS: Alanine Aminotransferase 17 U/L (12-78); Albumin Level 4.1 g/dl (3.5-5.0); Albumin/Globulin Ratio 1.2 (1.1-1.8); Alkaline Phosphatase 65 U/L (38-126); Anion Gap 14.5 mEq/L (5-15); Aspartate Amino Transferase 25 U/L (14-36); Bilirubin,Total 0.6 mg/dl (0.2-1.3); Blood Urea Nitrogen 26 mg/dl (7-17); Carbon Dioxide 26 mmol/L (22.0-30.0); Creatinine Clearance Estimated 53 mL/min (50-200); Estimated Glomerular Filt Rate 48 ml/min (>60); GFR (African American) 58 ML/MIN (>60); Globulin 3.3 g/dL (1.3-3.2); Glucose 131 mg/dl (74-100); Total Protein,Serum 7.4 g/dl (6.3-8.2)
[2022-10-28 10:55] VITALS: BP 145/54; PULSE 61; RESP 18; O2SAT 100
[2022-10-28 11:15] VITALS: BP 152/51; PULSE 63; RESP 18; O2SAT 100
[2022-10-28 11:45] VITALS: BP 142/65; PULSE 66; RESP 18; O2SAT 100
[2022-10-28 11:58] VITALS: BP 152/64; PULSE 65; RESP 18; O2SAT 100
[2022-10-28 12:23] VITALS: BP 154/75; PULSE 64; RESP 18; O2SAT 100
== END 2022-10-28 12:24 | disposition home or self-care (01) ==
LOC: INF 09:33
PROVIDERS: PCP Pediatrics; Visit Provider Internal Medicine Medical Oncology
DX: C50.912 Malignant neoplasm of unspecified site of left female breast (principal); Z17.1 Estrogen receptor negative status [ER-]; Z51.11 Encounter for antineoplastic chemotherapy
CPT/HCPCS: 80053; 85025; 96360; 96413; J1642; J9355

== ENCOUNTER → 2022-11-15 07:54 | Outpatient (CLI) | payer MEDICARE, SELFPAY ==
--- NOTE | 2022-11-15 | CA_ITS ---
APPROVED REPORT EXAM: Comprehensive 2D, Doppler, and color-flow Echocardiogram Fund Manager: Gisela Ramos, RCS, RVS Ht: 5 ft 4 in Wt: 180lbs BSA: 1.87 BP: 135/80 mmHg Indications: Breast cancer s/p mastectomy 04/2022, mild aortic insufficiency, Murmur, HTN, Ex-smoker 2D Dimensions IVSd 1.18 cm LVEF (Visual) 68.00 % PWd 0.91 cm LA Volume 65.40 mL LVDd 5.75 cm LA Volume Index 34.685597 mL/m2 (M/F) 16-34 LVDs 3.54 cm Aortic Root 3.37 cm Left Atrium 3.54 cm LVOT 1.94 cm (M/F) 1.5-2.5 M-Mode Dimensions LA Diam 4.14 cm (1.9-4.0) Ao Diam 3.43 cm (2.0-3.7) EPSs 0.85 cm TAPSE 1.83 (<1.7) LV Diastology E Decel Time 170.00 (160-240 msec) E/A Ratio 0.84 MED E' 4.60 (< 7 cm/sec) MED A' 10.10 cm/s E'/MED E' Ratio 15.76 (>14) LAT E' 9.50 (<10 cm/sec) LAT A' 9.10 cm/s E/LAT E' Ratio 7.63 (>14) Aortic Valve LVOT Max 104.00 (70-110 cm/s) LVOT VTI 23.00 cm AoV Peak Joseph. 113.00 (50-130 cm/s) AI PHT 485.00 ms AO Peak GR. 5.10 mmHg AO Mean GR. 2.60 (<5 mmHg) AO VTI 26.68 (18-25 cm) CASPER (VTI) 2.55 (2.5-4.5 cm2) Mitral Valve MV A Velocity 87.00 (40-130 cm/s) E/A Ratio 0.84 MV Decel. Time 170.00 (160-240 ms) MV PHT 60.00 ms Pulmonary Valve PV Peak Velocity 85.00 (50-150 cm/s) Tricuspid Valve TR P. Velocity 245.00 cm/s RAP Estimate 10.00 mmHg RVSP 34.10 mmHg Left Ventricle Left atrium is mildly enlarged telephonically normal size mild concentric left ventricular hypertrophy, estimated ejection fraction 55% with no obvious regional wall motion abnormality, diastolic parameters are inconclusive. Right Ventricle Right atrium and right ventricle mildly enlarged with normal contractility. Aortic Valve Aortic valve is minimally thickened and calcified without aortic stenosis, there is mild aortic insufficiency. Mitral Valve Mitral valve grossly normal, there is mild mitral regurgitation. Tricuspid Valve Tricuspid valve grossly normal, there is mild tricuspid regurgitation, tricuspid regurgitation jet plus is inadequate for calculation of the right ventricular systolic pressure. Pulmonic Valve Pulmonic valve is poorly visualized. Great Vessels Aortic root is normal size. Inferior vena cava is poorly visualized. Pericardium No significant pericardial effusion noted. Conclusion 1. Mild biatrial enlargement, normal left ventricular size, mild concentric left ventricular hypertrophy, estimated ejection fraction 55% with no regional wall motion abnormality, diastolic parameters are inconclusive. 2. Mildly enlarged right ventricle with normal contractility. 3. Mild aortic, mitral and tricuspid regurgitation. 4. No significant pericardial effusion noted. 5. Inferior vena cava is poorly visualized. Electronically signed by : Adonay Donovan MD 11/15/2022 17:08:26
[2022-11-15 08:09] VITALS: BMI 29.8
[2022-11-15 08:21] LABS: Basophils % 0.6 % (0.1-2.0); Eosinophils # 0.1 K/mm3 (0.0-0.4); Eosinophils % 1.9 % (0.1-12.0); Hematocrit 34.3 % (37.0-47.0); Hemoglobin 11.8 g/dL (12.2-16.2); Lymphocytes # 2.6 K/mm3 (0.7-4.5); Lymphocytes % 36.2 % (10-50); Mean Corpuscular HGB Conc 34.3 g/dL (31.8-35.4); Mean Corpuscular Volume 84.5 fl (81-99); Mean Platelet Volume 7.8 fl (7.4-10.4); Monocytes # 0.4 K/mm3 (0.1-1.0); Monocytes % 5.7 % (1.7-9.3); Neutrophils % 55.7 % (37.0-80.0); Platelet Count 210 K/mm3 (142-424); Red Blood Count 4.06 M/mm3 (4.20-5.40); White Blood Count 7.1 K/mm3 (4.8-10.8)
[2022-11-15 08:25] LABS: Chloride 99 mmol/L (98-107); Potassium 4.2 mmoL/L (3.5-5.1); Sodium 133 mmol/L (136-145)
--- NOTE | 2022-11-15 08:25 | CT_ITS ---
FINAL REPORT CLINICAL HISTORY: BREAST CANCER follow up. finishing last treatment this week COMPARISON: February 2022 FINDINGS: Before and after the administration of intravenous contrast, axial images through the chest were performed by computed tomography. This study was performed with techniques to keep radiation doses as low as reasonably achievable, (ALARA). Individualized dose reduction techniques using automated exposure control or adjustment of mA and/or kV according to the patient's size were employed. There is a right upper anterior chest wall port. There is no axillary adenopathy. There are calcified lymph nodes at the GE junction. There is no hilar or mediastinal adenopathy. The heart size is normal. There is dense coronary artery calcification. There is been interval left breast mastectomy. There is skin thickening of the left chest wall. There are surgical clips in the left axilla likely due to neha dissection. There is no pericardial or pleural effusion. There is a stable nodule in the periphery of the inferior right upper lobe on image 36 of series 607. There are stable pleural based nodules in the periphery of the right lower lobe. A stable pleural based density is seen in the left lung base. There is no new mass or pulmonary nodule. IMPRESSION: No acute process. Changes from interval left mastectomy and left axillary neha dissection. Reviewed, Interpreted and Dictated by Gregor Huntley MD Transcribed by Jacob Rice Authenticated and [facility]
--- NOTE | 2022-11-15 08:25 | CT_ITS ---
FINAL REPORT TECHNIQUE: Axial images were obtained from the lung bases through the pubic symphysis before and after the administration of intravenous contrast. Oral contrast was administered. This study was performed with techniques to keep radiation doses as low as reasonably achievable (ALARA). Individualized dose reduction techniques using automated exposure control or adjustment of mA and/or kV according to the patient's size were employed. CLINICAL HISTORY: BREAST CANCER follow up. finishing last treatment this week COMPARISON: February 2022 FINDINGS: Precontrast images demonstrate no evidence of nephrolithiasis or hydronephrosis. There are calcified granulomas in the liver and spleen. Abdomen: There is a small sliding-type hiatal hernia. The gallbladder is contracted. The pancreas and adrenal glands are unremarkable. 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 There is no mass or adenopathy identified. There is no evidence of bowel obstruction. Pelvis: The appendix is normal. The urinary bladder is unremarkable. There is no mass, free fluid or adenopathy. There are stable small sclerotic foci throughout the lumbar spine. There is moderate facet sclerosis of the lower lumbar spine. IMPRESSION: No acute process. Stable findings. Reviewed, Interpreted and Dictated by Gregor uHntley MD Transcribed by Jacob Rice Authenticated and [facility]
[2022-11-15 08:28] LABS: Alanine Aminotransferase 16 U/L (12-78); Albumin Level 4.1 g/dl (3.5-5.0); Albumin/Globulin Ratio 1.2 (1.1-1.8); Alkaline Phosphatase 70 U/L (38-126); Anion Gap 11.2 mEq/L (5-15); Aspartate Amino Transferase 20 U/L (14-36); Bilirubin,Total 0.4 mg/dl (0.2-1.3); Blood Urea Nitrogen 22 mg/dl (7-17); Carbon Dioxide 27 mmol/L (22.0-30.0); Creatinine Clearance Estimated 49 mL/min (50-200); Estimated Glomerular Filt Rate 44 ml/min (>60); GFR (African American) 53 ML/MIN (>60); Globulin 3.3 g/dL (1.3-3.2); Total Protein,Serum 7.4 g/dl (6.3-8.2)
[2022-11-15 08:29] LABS: Calcium 9.5 mg/dl (8.4-10.2); Glucose 123 mg/dl (74-100)
== END ==
PROVIDERS: PCP Pediatrics; Visit Provider Internal Medicine Medical Oncology
DX: C50.212 Malignant neoplasm of upper-inner quadrant of left female breast (principal); R01.1 Cardiac murmur, unspecified
CPT/HCPCS: 36591; 71270; 74178; 80053; 85025; 93306; J1642; Q9967

== ENCOUNTER → 2022-11-18 08:21 | Outpatient (CLI) | payer MEDICARE, SELFPAY | PROVIDERS: PCP Pediatrics; Visit Provider Internal Medicine Medical Oncology | DX: C50.212 Malignant neoplasm of upper-inner quadrant of left female breast (principal) ==

== ENCOUNTER 2022-12-28 09:23 | Outpatient (CLI) | payer MEDICARE, SELFPAY | END 2022-12-28 09:45 | disposition home or self-care (01) | LOC: INF 09:24 | PROVIDERS: PCP Pediatrics; Visit Provider Internal Medicine Medical Oncology | DX: C50.919 Malignant neoplasm of unspecified site of unspecified female breast (principal); Z45.2 Encounter for adjustment and management of vascular access device | CPT/HCPCS: 96523; J1642 ==

== ENCOUNTER 2023-02-08 09:22 | Outpatient (CLI) | payer MEDICARE, SELFPAY | END 2023-02-08 10:03 | disposition home or self-care (01) | LOC: INF 09:24 | PROVIDERS: PCP Pediatrics; Visit Provider Internal Medicine Medical Oncology | DX: Z45.2 Encounter for adjustment and management of vascular access device (principal) | CPT/HCPCS: 96523; J1642 ==

== ENCOUNTER 2023-03-17 09:08 | Outpatient (CLI) | payer MEDICARE, SELFPAY ==
[2023-03-17 09:11] VITALS: BMI 30.7
[2023-03-17 09:33] LABS: Basophils % 0.4 % (0.1-2.0); Eosinophils # 0.1 K/mm3 (0.0-0.4); Eosinophils % 1.3 % (0.1-12.0); Hematocrit 35.9 % (37.0-47.0); Lymphocytes # 2.4 K/mm3 (0.7-4.5); Lymphocytes % 35.3 % (10-50); Mean Corpuscular HGB Conc 33.5 g/dL (31.8-35.4); Mean Corpuscular Hemoglobin 29.9 pg (27.0-31.2); Mean Corpuscular Volume 89.2 fl (81-99); Mean Platelet Volume 7.8 fl (7.4-10.4); Monocytes # 0.4 K/mm3 (0.1-1.0); Monocytes % 6.2 % (1.7-9.3); Neutrophils # 3.8 K/mm3 (1.8-7.8); Neutrophils % 56.8 % (37.0-80.0); Platelet Count 171 K/mm3 (142-424); Red Blood Count 4.03 M/mm3 (4.20-5.40); Red Cell Distribution Width 13.7 % (11.5-17.5); White Blood Count 6.7 K/mm3 (4.8-10.8)
[2023-03-17 09:39] LABS: Chloride 100 mmol/L (98-107); Sodium 138 mmol/L (136-145)
[2023-03-17 09:40] LABS: Potassium 4.5 mmoL/L (3.5-5.1)
[2023-03-17 09:42] LABS: Alanine Aminotransferase 17 U/L (12-78); Albumin Level 4.3 g/dl (3.5-5.0); Albumin/Globulin Ratio 1.3 (1.1-1.8); Alkaline Phosphatase 56 U/L (38-126); Anion Gap 15.5 mEq/L (5-15); Aspartate Amino Transferase 21 U/L (14-36); Bilirubin,Total 0.5 mg/dl (0.2-1.3); Blood Urea Nitrogen 27 mg/dl (7-17); Calcium 9.8 mg/dl (8.4-10.2); Carbon Dioxide 27 mmol/L (22.0-30.0); Creatinine Clearance Estimated 46 mL/min (50-200); Estimated Glomerular Filt Rate 40 ml/min (>60); GFR (African American) 48 ML/MIN (>60); Globulin 3.2 g/dL (1.3-3.2); Glucose 147 mg/dl (74-100); Total Protein,Serum 7.5 g/dl (6.3-8.2)
== END 2023-03-17 09:20 | disposition home or self-care (01) ==
LOC: INF 09:09
PROVIDERS: PCP Nurse Practitioner; Visit Provider Internal Medicine Medical Oncology
DX: C50.912 Malignant neoplasm of unspecified site of left female breast (principal); Z45.2 Encounter for adjustment and management of vascular access device
CPT/HCPCS: 36591; 80053; 85025; J1642

== ENCOUNTER 2023-04-19 10:30 | Outpatient (CLI) | payer MEDICARE, SELFPAY | END 2023-04-19 11:10 | disposition home or self-care (01) | LOC: INF 10:31 | PROVIDERS: PCP Nurse Practitioner; Visit Provider Internal Medicine Medical Oncology | DX: Z45.2 Encounter for adjustment and management of vascular access device (principal) | CPT/HCPCS: 96523; J1642 ==

== ENCOUNTER 2023-05-31 11:05 | Outpatient (CLI) | payer MEDICARE, SELFPAY | END 2023-05-31 11:19 | disposition home or self-care (01) | LOC: INF 11:06 | PROVIDERS: Visit Provider Internal Medicine Medical Oncology | DX: C50.212 Malignant neoplasm of upper-inner quadrant of left female breast (principal); Z45.2 Encounter for adjustment and management of vascular access device | CPT/HCPCS: 96523; J1642 ==

== ENCOUNTER 2023-07-05 08:12 | Outpatient (CLI) | payer MEDICARE, SELFPAY ==
[2023-07-05 08:18] VITALS: BMI 29.8
--- NOTE | 2023-07-05 08:36 | CT_ITS ---
FINAL REPORT TECHNIQUE: Thin section axial images were obtained through the abdomen after intravenous contrast. Oral contrast was also administered. Reconstruction images were obtained from the axial data. Exam was performed using dose reduction techniques. CLINICAL HISTORY: BREAST CANCER COMPARISON: 11/15/2022 FINDINGS: There is intrahepatic and extrahepatic ductal dilatation which is stable. The liver is homogeneous. There is a very small gallbladder or cystic duct remnant. The spleen, adrenal glands, and pancreas are unremarkable. There is no hydronephrosis. There is a fat containing mass arising from the upper pole of the left kidney measuring 5.2 cm consistent with an angiomyolipoma. Abdominal GI tract is without acute abnormality. There is no abdominal lymphadenopathy or ascites. The patient is status post hysterectomy. The pelvic portions of the GI tract, including the appendix, are without acute abnormality. There is no pelvic lymphadenopathy or ascites. No acute osseous abnormalities identified. IMPRESSION: No CT evidence of acute intra-abdominal or intrapelvic abnormality. Reviewed, Interpreted and Dictated by Esther Driver MD Transcribed by Nayeli Jones Authenticated and . [facility]
--- NOTE | 2023-07-05 08:36 | CT_ITS ---
FINAL REPORT TECHNIQUE: Thin section axial images were obtained from the thoracic inlet through the upper abdomen after intravenous contrast injection. Reconstruction images were obtained from the axial data. Exam was performed using dose reduction technique. CLINICAL HISTORY: breast cancer COMPARISON: 11/15/2022 FINDINGS: Right Port-A-Cath is unchanged. There are postoperative changes from left mastectomy and left axillary lymph node dissection. The abnormal attenuation in the left axilla has improved. There is no axillary lymphadenopathy. Small AP window and right paratracheal lymph nodes are unchanged. There is no hilar adenopathy. The ascending aorta is dilated measuring 4.2 cm, stable. There is a left lower lobe pleural-based nodule measuring 7 mm which is unchanged. Finding is best seen on image 65. There is a nodule opacity just anterior to the left major fissure on image 53, stable. There are 2 two, 5 mm left upper lobe nodules which are stable. These are well seen on images 28 and 29. There is a right upper lobe nodule measuring 5 mm well seen on image 37, unchanged. Several additional subcentimeter right lung nodules are unchanged. No acute osseous abnormality. IMPRESSION: Stable bilateral pulmonary nodules. Recommend continued follow-up. Stable ascending aortic aneurysm. Improved attenuation in the left axilla. Reviewed, Interpreted and Dictated by Esther Driver MD Transcribed by Nayeli Jones Authenticated and [facility]
[2023-07-05 08:52] LABS: Basophils % 0.5 % (0.1-2.0); Eosinophils # 0.1 K/mm3 (0.0-0.4); Eosinophils % 1.7 % (0.1-12.0); Hematocrit 39.4 % (37.0-47.0); Hemoglobin 12.5 g/dL (12.2-16.2); Lymphocytes # 2.4 K/mm3 (0.7-4.5); Mean Corpuscular HGB Conc 31.7 g/dL (31.8-35.4); Mean Corpuscular Hemoglobin 29.5 pg (27.0-31.2); Mean Corpuscular Volume 92.8 fl (81-99); Mean Platelet Volume 8.1 fl (7.4-10.4); Monocytes # 0.4 K/mm3 (0.1-1.0); Monocytes % 5.6 % (1.7-9.3); Neutrophils % 57.3 % (37.0-80.0); Platelet Count 181 K/mm3 (142-424); Red Blood Count 4.25 M/mm3 (4.20-5.40); Red Cell Distribution Width 13.6 % (11.5-17.5); White Blood Count 6.9 K/mm3 (4.8-10.8)
[2023-07-05 08:55] LABS: Alanine Aminotransferase 22 U/L (12-78); Albumin Level 4.2 g/dl (3.5-5.0); Albumin/Globulin Ratio 1.2 (1.1-1.8); Alkaline Phosphatase 59 U/L (38-126); Anion Gap 15.4 mEq/L (5-15); Aspartate Amino Transferase 26 U/L (14-36); Bilirubin,Total 0.3 mg/dl (0.2-1.3); Blood Urea Nitrogen 23 mg/dl (7-17); Calcium 10.1 mg/dl (8.4-10.2); Carbon Dioxide 24 mmol/L (22.0-30.0); Chloride 103 mmol/L (98-107); Creatinine Clearance Estimated 41 mL/min (50-200); Estimated Glomerular Filt Rate 36 ml/min (>60); GFR (African American) 44 ML/MIN (>60); Globulin 3.6 g/dL (1.3-3.2); Glucose 166 mg/dl (74-100); Potassium 4.4 mmoL/L (3.5-5.1); Sodium 138 mmol/L (136-145); Total Protein,Serum 7.8 g/dl (6.3-8.2)
== END 2023-07-05 09:35 | disposition home or self-care (01) ==
LOC: RAD 08:13 → INF 08:35
PROVIDERS: Visit Provider Internal Medicine Medical Oncology
DX: C50.912 Malignant neoplasm of unspecified site of left female breast (principal); Z17.1 Estrogen receptor negative status [ER-]; Z45.2 Encounter for adjustment and management of vascular access device; Z79.899 Other long term (current) drug therapy
CPT/HCPCS: 36591; 71260; 74177; 80053; 85025; 96523; J1642; Q9967

== ENCOUNTER 2023-08-08 08:12 | Day surgery (SDC) | payer MEDICARE, SELFPAY ==
[2023-08-05 10:27] VITALS: BMI 32.5
[2023-08-08 08:49] VITALS: BP 185/69; PULSE 65; RESP 18; TEMP 37.1; O2SAT 98
[2023-08-08 09:09] LABS: POC Glucose,Bedside 190 (70-110)
[2023-08-08 09:10] LABS: Basophils % 0.3 % (0.1-2.0); Eosinophils # 0.1 K/mm3 (0.0-0.4); Eosinophils % 1.8 % (0.1-12.0); Hemoglobin 13.1 g/dL (12.2-16.2); Lymphocytes # 2.7 K/mm3 (0.7-4.5); Lymphocytes % 34.5 % (10-50); Mean Corpuscular HGB Conc 34.4 g/dL (31.8-35.4); Mean Corpuscular Hemoglobin 31.7 pg (27.0-31.2); Mean Corpuscular Volume 92.1 fl (81-99); Mean Platelet Volume 8.3 fl (7.4-10.4); Monocytes # 0.5 K/mm3 (0.1-1.0); Monocytes % 6.2 % (1.7-9.3); Neutrophils # 4.4 K/mm3 (1.8-7.8); Neutrophils % 57.1 % (37.0-80.0); Platelet Count 171 K/mm3 (142-424); Red Blood Count 4.12 M/mm3 (4.20-5.40); Red Cell Distribution Width 13.5 % (11.5-17.5); White Blood Count 7.7 K/mm3 (4.8-10.8)
[2023-08-08 09:15] LABS: Chloride 103 mmol/L (98-107); Potassium 4.3 mmoL/L (3.5-5.1); Sodium 137 mmol/L (136-145)
[2023-08-08 09:18] LABS: Anion Gap 12.3 mEq/L (5-15); Blood Urea Nitrogen 22 mg/dl (7-17); Calcium 9.8 mg/dl (8.4-10.2); Carbon Dioxide 26 mmol/L (22.0-30.0); Creatinine Clearance Estimated 54 mL/min (50-200); Estimated Glomerular Filt Rate 43 ml/min (>60); GFR (African American) 53 ML/MIN (>60); Glucose 198 mg/dl (74-100)
--- NOTE | 2023-08-08 09:18 | EXP.ANES.CKL ---
[facility] Disclaimer: The information contained in this section may have been updated after the patient was seen, as this information can be updated by other users. Medical History Abnormal electrocardiography Breast cancer Dyspnea Encounter for pre-operative cardiovascular clearance History of diabetes mellitus History of high cholesterol Lipoma of skin and subcutaneous tissue (excluding face) Port-A-Cath in place Surgical History History of cholecystectomy History of dilation and curettage History of hysterectomy History of left mastectomy History of surgery Family History Other Family history of cancer Social History Smoking Status: Former smoker second hand exposure: No alcohol intake: never substance use type: denies use current occupational status: unemployed and retired Travel in the last 8 weeks: None household members: spouse housing: house marital status: education level: high school current occupational exposures/hazards: No caffeine: No [facility] Anesthesia Checklist Patient Identification Patient Identification: Arm Band Structural Data Admitted From: Home Planned Operative Procedure/s: Port-a-cath removal Consent for Planned Operative Procedure(s) Verified: Yes Verified Documents: Surgical Consent and History and Physical NPO Status Verified Time NPO: 00:00 Additional verifications Anesthesia Reactions: No Hx Blood Transfusions: No Blood Transfusion Reaction: No Airway Assessment Mallampati Score:: Class II C-Spine Mobility Assessed: Yes TMJ Mobility Assessed: Yes Dentition: Edentulous Neurological Assessment Level of Consciousness: Awake and Alert Anesthesia Plan Anesthesia Risk discussed: Yes Anesthesia Plan: Verified ASA Class: III Anesthesia Type: General
--- NOTE | 2023-08-08 10:22 | P.OP_ITS ---
Date of procedure: 08/08/23 Pre-op Diagnosis:: Obsolete venous access port Post-op Diagnosis:: Same Procedure performed:: Removal of right-sided venous access device with reservoir port Surgeon:: Raj Gramajo MD COOK HELPER PRESERVES:: John De Anesthesia: MAC and local Estimated blood loss (mL): 2 Operative findings:: Consistent with right internal jugular venous access port Operative note:: Patient was taken the operating room. She was given preoperative intravenous antibiotics. In the operating room she was placed in a supine position. Adequate intravenous sedation was achieved. Area was prepped and draped in the standard surgical fashion. Skin overlying the palpable port was rather thin. Local anesthetic was infiltrated. Skin incision was made. Port was easily identified. It was extracted from the subcutaneous pocket. It appeared as though this was right internal jugular port. With gentle traction the venous access device with reservoir port was removed intact. Pressure was held at the internal jugular vein for a few minutes for hemostasis. The fibrous capsule within the subcutaneous pocket was excised using electrocautery. There was good hemostasis. Subdermal tissues were closed with several interrupted 3-0 Vicryl sutures. Skin was closed with 4-0 Monocryl in a subcuticular fashion. Clean dry sterile dressing was applied. Condition: stable Disposition: PACU Complications:: None immediately apparent
[2023-08-08 10:25] VITALS: BP 100/55; PULSE 58; RESP 16; TEMP 36.7; O2SAT 94
[2023-08-08 10:35] VITALS: BP 157/84; PULSE 65; RESP 17; O2SAT 94
[2023-08-08 10:45] VITALS: BP 182/91; PULSE 63; RESP 16; O2SAT 99
[2023-08-08 10:55] VITALS: BP 152/79; PULSE 64; RESP 18; O2SAT 100
[2023-08-08 11:10] VITALS: BP 156/71; PULSE 67; RESP 19; O2SAT 100
== END 2023-08-08 11:10 | disposition home or self-care (01) ==
PROVIDERS: PCP Nurse Practitioner; Visit Provider Surgery
PROC: (CPT 36590; principal; 2023-08-08 09:45)
DX: T82.598A Other mechanical complication of other cardiac and vascular devices and implants, initial encounter (principal); E11.9 Type 2 diabetes mellitus without complications
CPT/HCPCS: 36590; 80048; 82962; 85025; 96374

== ENCOUNTER 2023-12-15 08:16 | Outpatient (CLI) | payer MEDICARE, SELFPAY ==
[2023-12-15 08:32] VITALS: BMI 32.5
[2023-12-15 09:00] LABS: Basophils # 0.1 K/mm3 (0-0.2); Basophils % 0.9 % (0.1-2.0); Eosinophils # 0.2 K/mm3 (0.0-0.4); Eosinophils % 2.7 % (0.1-12.0); Hematocrit 41.6 % (37.0-47.0); Hemoglobin 14.1 g/dL (12.2-16.2); Lymphocytes % 37.2 % (10-50); Mean Corpuscular HGB Conc 33.9 g/dL (31.8-35.4); Mean Corpuscular Hemoglobin 31.8 pg (27.0-31.2); Mean Corpuscular Volume 93.8 fl (81-99); Mean Platelet Volume 8.2 fl (7.4-10.4); Monocytes # 0.5 K/mm3 (0.1-1.0); Monocytes % 6.1 % (1.7-9.3); Neutrophils # 4.2 K/mm3 (1.8-7.8); Platelet Count 208 K/mm3 (142-424); Red Blood Count 4.43 M/mm3 (4.20-5.40); Red Cell Distribution Width 13.4 % (11.5-17.5)
[2023-12-15 09:09] LABS: Alanine Aminotransferase 22 U/L (12-78); Albumin Level 4.9 g/dl (3.5-5.0); Albumin/Globulin Ratio 1.4 (1.1-1.8); Alkaline Phosphatase 76 U/L (38-126); Anion Gap 17.3 mEq/L (5-15); Aspartate Amino Transferase 25 U/L (14-36); Bilirubin,Total 0.6 mg/dl (0.2-1.3); Blood Urea Nitrogen 29 mg/dl (7-17); Calcium 10.2 mg/dl (8.4-10.2); Carbon Dioxide 24 mmol/L (22.0-30.0); Chloride 98 mmol/L (98-107); Creatinine Clearance Estimated 45 mL/min (50-200); Estimated Glomerular Filt Rate 36 ml/min (>60); GFR (African American) 44 ML/MIN (>60); Globulin 3.5 g/dL (1.3-3.2); Glucose 195 mg/dl (74-100); Potassium 4.3 mmoL/L (3.5-5.1); Sodium 135 mmol/L (136-145); Total Protein,Serum 8.4 g/dl (6.3-8.2)
--- NOTE | 2023-12-15 09:15 | CT_ITS ---
FINAL REPORT TECHNIQUE: Axial CT images of the abdomen and pelvis were obtained before and after the administration of IV contrast. Oral contrast was administered.This study was performed with techniques to keep radiation doses as low as reasonably achievable (ALARA). Individualized dose reduction techniques using automated exposure control or adjustment of mA and/or kV according to the patient''s size were employed. CLINICAL HISTORY: HX OF BREAST CANCER COMPARISON: 07/05/2023 FINDINGS: Abdomen: The liver has an unremarkable appearance, without evidence of mass or biliary duct dilatation. Suspected prior cholecystectomy with prominent cystic duct remnant. There is stable mild biliary ductal dilatation. The spleen is unremarkable. No adrenal masses present. The pancreas has an unremarkable appearance. There is a fat attenuation mass in the upper pole of the left kidney measuring approximately 5.5 cm consistent with an angiomyolipoma. The aorta is normal in caliber. There are mild vascular calcifications. There is no free fluid or adenopathy. There is a small hiatal hernia. Pelvis: The appendix is normal. The urinary bladder is unremarkable. Post hysterectomy. No inflammatory process is seen. There is no evidence of mass or adenopathy. There is no evidence of bowel obstruction. There are degenerative changes in the spine. IMPRESSION: No evidence of acute intra-abdominal process. Reviewed, Interpreted and Dictated by Raj Pacheco III, MD Transcribed by Gela Swift Authenticated and [facility]
--- NOTE | 2023-12-15 09:15 | CT_ITS ---
FINAL REPORT TECHNIQUE: The patient was injected with IV contrast. Axial images were obtained of the chest by computed tomography. Precontrast images were also obtained. This study was performed with techniques to keep radiation doses as low as reasonably achievable (ALARA). Individualized dose reduction techniques using automated exposure control or adjustment of mA and/or kV according to the patient's size were employed. CLINICAL HISTORY: HX BREAST CANCER COMPARISON: 07/05/2023 FINDINGS: CT OF THE CHEST WITH AND WITHOUT CONTRAST: There is no axillary adenopathy. Borderline sized mediastinal nodes are stable. Heart size is normal. There is ectasia of the ascending aorta measured at 4.2 cm. There is no evidence of dissection. There is no pericardial or pleural effusion identified. There is a 5 mm lateral right upper lobe nodule on image 40 which is stable. There is a stable 6 mm posterior left lower lobe nodule on image 75. There are several other small nodules which are also stable. There is no new mass or nodule. Several calcified granulomas are noted. There are postoperative changes from left mastectomy and left axillary node dissection. There is mild sclerosis in the mid sternum which is stable but of uncertain etiology. There is no well-defined bony mass. IMPRESSION: Stable pulmonary nodules. Stable ectasia of the ascending aorta. Mild sclerosis mid sternum stable but of uncertain etiology. Reviewed, Interpreted and Dictated by Raj Pacheco III, MD Transcribed by Gela Swift Authenticated and [facility]
[2023-12-15] MEDS: SODIUM CHLORIDE 0.9% 10ML SYR (RAD ONLY) 10 ML IV (10:25)
[2023-12-15] MEDS: IOPAMIDOL-370 (76%);100ML BOTTLE 75 ML IV (10:25)
== END 2023-12-15 23:59 ==
PROVIDERS: PCP Nurse Practitioner; Visit Provider Internal Medicine Medical Oncology
DX: C50.912 Malignant neoplasm of unspecified site of left female breast (principal); Z17.1 Estrogen receptor negative status [ER-]
CPT/HCPCS: 36415; 71270; 74178; 80053; 85025; Q9967